=== PATIENT | female | born 1945 | race Caucasian/White ===

== ENCOUNTER 2025-10-18 09:52 | Outpatient (OUT) | payer MEDICARE, SELFPAY ==
--- OUTSIDE RECORDS SUMMARY | 2025-10-18 10:00 | XMS_ITS | Clinical Summary ---
Author Organization [facility] Address [address] [place] [address], [address] [place] [address] Care Team Providers Care Cash Teller Name Role Phone Unavailable Primary Care Provider Unavailabl e Social History Tobacco UseTypesPacks/DayYears UsedDateSmoking Tobacco: Never Assessed CommentsUnknownSex and Gender InformationValueDate RecordedSex Assigned at Not on fileLegal XzbYpschf10/17/2014 5:28 PM ESTGender IdentityNot on fileSexual OrientationNot on file Plan of Treatment Not on file
--- OUTSIDE RECORDS SUMMARY | 2025-10-18 10:01 | XMS_ITS | Clinical Summary ---
Author Organization [facility] Address [address] [place] [address] Phone Care Team Providers Care Joiners Supervisor Name Role Phone Unavailable Primary Care Provider Unavailabl e Social History Tobacco UseTypesPacks/DayYears UsedDateSmoking Tobacco: Never Assessed CommentsUnknownSex and Gender InformationValueDate RecordedSex Assigned at Not on fileLegal FtzAmhgqk78/25/2022 4:57 PM ESTGender IdentityNot on fileSexual OrientationNot on file Plan of Treatment Health MaintenanceDue DateLast DoneCommentsLipid Panel1947Yearly Adult Jytbesmr1947Hepatitis C Xvdhijlpg70/12/1965DTaP/Tdap/Td Vaccines (1 - Tdap)1969Pneumococcal Vaccine (1 of 1 - PCV)1997Zoster Vaccines (1 of 2)1997Bone Density Scan2012RSV High Risk: (Elderly (60+) or Population) (1 - 1-dose 75+ series)2022Influenza Vaccine (#1) 2025OVID-19 Vaccine ( - season)2025HIB VaccinesAged OutNo longer eligible based on patient's age to complete this topicHPV VaccinesAged OutNo longer eligible based on patient's age to complete this topicHepatitis A VaccinesAged OutNo longer eligible based on patient's age to complete this topic Hepatitis B VaccinesAged OutNo longer eligible based on patient's age to complete this topicIPV VaccinesAged OutNo longer eligible based on patient's age to complete this topicMeningococcal VaccineAged OutNo longer eligible based on patient's age to complete this topicRotavirus VaccinesAged OutNo longer eligible based on patient's age to complete this topic
--- OUTSIDE RECORDS SUMMARY | 2025-10-18 10:01 | XMS_ITS | Data Portability ---
Author Organization [facility], 9DIAMOND - [id number] Address [address] [place] [address] Care Team Providers Care Manager Exchange Name Role Phone PUNEET HERNANDEZ Primary Care Provider PUNEET HERNANDEZ Referring Provider Assessment No assessment recorded. Plan of Treatment Reminders Order DateSubmit DateProviderLast Modified ByOrganization DetailsLast Modified TimeDetailsAppointmentsNone recorded.Labpap, IGATHENAQuest [facility], [address] [place], [address], 02/18/2018 14:09:51pap, IG + [facility] ([facility] [address], [place], [address], 12/ 20:29:47pap, LB - Order Code 34 [facility] [address], [place], [address], 12/08/2014 13:34:48biopsy, tkydripwmha09/16/[facility]oralesperezW[facility] ([facility]), [address], [place], [address], 07 07:43:26biopsy, sionezhvmh91/16/2013 06/08/2013rmoralesperezGenpath [facility] ([facility]), [address], [place], [address], 10 09:41:02ReferralNone recorded.ProceduresNone recorded.SurgeriesNone recorded. ImagingMAMMO, screening, ugijsoonh29ATHENANot available 04/08/2018 17:43:62MPMT32ATHENANot innmmbpoq49/14/2019 05:01:55MAMMO, screening, digital, rbsvmuhtr38THENANot yuxxggwwm32/05/2016 05:41:11mammogram, rfpamcltc51 rmoralesperezNot uuxdunzcl37/18/2014 08:09:53dual energy x-ray absorptiometry rmoralesperezNot wwfudursn74/18/2014 08:09:53Medication Orderstemazepam 15 mg vjmaolx887912rcfycsfb1[id number], [address] [place], [place], [id number], 11/09/2015 15:55:23ketorolac 60 mg/2 mL intramuscular lvzuaust11THENANot /27/2013 04:21:37 Patient TargetsNo targets recorded. Patient Instructions Encounter Date Encounter Id Patient Instructions Last Modified By Organization Details Last Modified Time 10/27/2014 [id number] colonoscopy education rmoralesperez Not available 12/30/2014 08:59:44 Colorectal Cancer Screening: Care InstructionsrmoralesperezNot available 12/30/2014 08:59:44self breast exam educationrmoralesperezNot available 12/30/2014 08:59:[id number] self-exam: care instructions rmoralesperezNot tizmxmczc78/07/2016 11:24:56002/16/[id number] breast exam rwytymazqiyrewduo1Cal /26/2018 12:16:13colonoscopy educationjbelcher7 Not jgrwcjaiq85/26/2018 12:16:13Colorectal Cancer Screening: Care Instructions xpetjpjf3Fez uzpmpirff01/26/2018 12:16:13Well woman exam: Requests pap without HPV cotesting today. Script given for pt to schedule mammogram and DEXA scan. She follows with a PCP, is unsure if she wants to have another colonoscopy. f/u 1 year for well woman exam.nawxupxz3Gut unvijkzzz19/26/2018 12:25:16 Reason for Referral None Reported. Results Created Date Observation Date Name Description Value Unit Range Abnormal Flag Note LastModifiedBy Organization Detail LastModifiedTime 06/08/2013 06/08/2013 unknown observation status normalNot [facility] [employer] [address], [place], [address], Ph [phone] 08:27:unknownendocervical [id number].pdfnormal Not [facility] [employer] [address], [place], [address], Ph [phone] 08:27:unknownendometrial [id number].pdfnormal diagnosis 1. endocervix, curettage: abundant mucus and scant endocervical glands. no evidence of dysplasia identified. rebiopsy may BE necessary, if clinically indicated. 2. endometrium, biopsy: no evidence of atypia, nor malignancy identified. proliferative phase glands with pseudodecidualized stroma, focal breakdown and reparative epithelial changes. slide inventory: 4 H\T\E CPT: 36000 X 2 tissue source 1. endocervical curettings 2. endometrial biopsy gross description 1. the specimen IS received in formalin labeled with the patient's nameand ecc and consists of two thin wire brushes with adherent cruz-light brown fragments of mucoid material and soft tissue. these have an aggregate diameter of 0.5 cm. the specimen IS labeled with ipc blue. filtered into a tissue specimen bag. these are removed and are entirely submitted in a single cassette 1A. 2. the specimen IS received in formalin labeled with the patient's name and endometrial biopsy and consists of multiple cruz and brown fragments of tissue with a total aggregate diameter of 5.8 cm. the entire specimen IS submitted 2A through 2C. ss/gep signature shikha cid M.D, M.P.H. (case signed 06/10/2013)Not [facility] [address], [place], [address], 07 08:27:pap, LB + HR HPVobservation statusNot [facility] [address], [place], [address], 201/03/2014 13:34:48pap, LB + HR HPVPap smearNORMAL DIAGNOSIS SUXHWOIH-UXT-GBMTEYLQ-PAP SMEAR Negative For Intraepithelial Lesion or Malignancy. Atrophic Smear. (pgr) Adequacy Satisfactory Adequacy Reason Endocervical Component/Squamous Metaplastic Cells from Transformation Zone are Present. Test Result HPV Negative for High Risk HPV HPV High Risk Only: Hybrid Capture 2 is performed by nucleic acid hybridization with signal amplification using microplate chemiluminescence for detection of high/intermediate risk HPV types 16, 18, 31, 33, 35, 39, 45, 51, 52, 56, 58, 59, 68 (does not specifically identify each type present). -OR- APTIMA HPV assay on the [employer] system is an in vitro nucleicacid amplification test for the qualitative detection of E6/E7 viral messenger RNA of HPV types 16,18, 31, 33, 35, 39, 45, 51, 52, 56, 58, 59, 66, \T\ 68. The test(s) were validated and its appropriate performance characteristics determined by the reporting laboratory. This laboratory is certifiedunder CLIA-88 as qualified to perform high complexity clinical laboratory testing. Signature TITO DUNHAM(ASCP) (Case signed 11/01/2014) The PAP test is a screening test, not a diagnostic pro cedure and should not be used as the sole means of detecting cervical cancer. The pap technique in the best of hands is subject to both false negative and false positive result at low but significantrates as evidenced by published data. This result should be interpreted in the context of this data, plus your patient's history and clinical findings.[place] [address] [facility] [address], [place], [address], 101/03/2014 13:34:48pap, LB + HR HPVHPVNEGATIVENEGATIVE FOR HIGH RISK HPV HYBRID CAPTURE 2 IS PERFORMED BY NUCLEIC ACID HYBRIDIZATION WITH SIGNAL A MPLIFICATION USING MICROPLATE CHEMILUMINESCENCE FOR DETECTION OF HIGH/INTERMEDIATE RISK HPV TYPES 16, 18, 31, 33, 35, 39, 45, 51, 52, 56, 58, 59, 68 (DOES NOT SPECIFICALLY IDENTIFY EACH TYPE PRESENT). -OR- APTIMA HPV ASSAY ON THE [employer] DTS SYSTEM IS AN IN VITRO NUCLEIC ACID AMPLIFICATION TEST FOR THE QUALITATIVE DETECTION OF E6/E7 VIRAL MESSENGER RNA OF HPV TYPES 16, 18, 31, 33, 35, 39, 45, 51, 52, 56, 58, 59, 66, \T\ 68. THE TEST(S) WERE VALIDATED AND ITS APPROPRIATE PERFORMANCE CHARACTERISTICS DETERMINED BY THE REPORTING LABORATORY. THIS LABORATORY IS CERTIFIED UNDER CLIA-88 QUALIFIED TO PERFORM HIGH COMPLEXITY CLINICAL LABORATORY TESTING.[facility] [address], [place], [address], 92/08/2014 13:34:48pap, LB + HPV mRNA E6/W4sganzxoo information:none givennormalNot AvailableQuest [facility] [address], [place], [address], 411325 20:29:47 pap, LB + HPV mRNA E6/E7LMP:none givennormalNot Available [facility] [address], [place], [address], 495711/16/2015 20:29:47 pap, LB + HPV mRNA E6/E7prev. Pap:none givennormalNot AvailableQuest [facility] [address], [place], [address], [address] 20:29:47 pap, LB + HPV mRNA E6/E7prev. BX:none givennormalNot AvailableQuest Diagnostics - [facility] [address], [place], [address], 7[address] 20:29:47 pap, LB + HPV mRNA E6/T4djegin:none givennormalNot Available [facility] [address], [place], [address], [address] 20:29:47 pap, LB + HPV mRNA E6/R1loqqkhzvl of adequacy:normal SATISFACTORY FOR EVALUATIONNot AvailableQuest Diagnostics - [address], [address], 11/16/2015 20:29:47 pap, LB + HPV mRNA E6/Z2dotmgcpnoqyygq/result:Negative for intraepithelial lesion or malignancy. Atrophic pattern; predominantly parabasal cellsNot AvailableQuest Diagnostics - [address], [address], 11/16/2015 20:29:47 pap, LB + HPV mRNA E6/M4zopmsty:normalThis Pap test has been evaluated with computer assisted technology. Parabasal cells in smears that lack maturation due to atrophy or other hormonal reasons cannot be differentiated from transformation zone cells. Accordingly, presence or absence of endocervical or transformation zone components cannot be reported in this patient.Not AvailableQuest Diagnostics - [address], [address], 11/16/2015 20:29:47 pap, LB + HPV mRNA E6/J6nntflabgnpvjdimt:Nagi, CT (ASCP) CT screening location: [place] [address] Not AvailableQuest Diagnostics [address], [address], 11/16/2015 20:29:47 pap, LB + HPV mRNA E6/E7HPV MRNA E6/E7Not Detectednot detectednormalThis test was performed using the APTIMA HPV Assay ([employer] This assay detects E6/E7 viralmessenger RNA (mRNA) from 14 high-risk HPV types (16,18,31,33,35,39,45,51,52,56,58,59,66,68).Not AvailableQuest Diagnostics [address] [place], [address], 12 20:29:47 pap, IG + reflex HPV if ASC-UinterpretationNILNEGATIVE FOR INTRAEPITHELIAL LESION AND MALIGNANCY.Not Available[facility] ([facility]) [address] [place], [address], Ph [phone] 14:09:51 pap, IG + reflex HPV if ASC-Ucategory:NILNegative for Intraepithelial LesionNot Available[facility] ([facility]) [address] [facility] [place], [address], Ph [phone] 14:09:51 pap, IG + reflex HPV if ASC-Uadequacy:SDERSatisfactory for evaluation.Not Available[facility] ([facility]) [address] [place], [address], Ph [phone] 14:09:51 pap, IG + reflex HPV if ASC-Uclinician provided ICD10: JchcbdaO84.2 Z12.4Not Available[facility] ([facility]) [address] [place], [address], Ph [phone] 14:09:51 pap, IG + reflex HPV if ASC-Uperformed by:Ada Garza CytotechnologistNot AvailableLab[facility] ([facility]) [address] [place], [address], Ph [phone] 14:09:51 pap, IG + reflex HPV if ASC-Unote:CommentThe Pap smear is a screening test designed to aid in the detection of premalignant and malignant conditions of the uterine cervix. It is not a diagnostic procedure and should not be used as the sole means of detecting cervical cancer. Both false-positive and false-negative reports do occur.Not Available[facility] ([facility]) [address] [facility], [place], [address], 13 14:09:51 pap, IG + reflex HPV if ASC-Utest methodology:CommentThis liquid based ThinPrep(R) pap test was screened with the use of an image guided system.Not Available[facility] ([facility]) [address] [facility], [place], [address], 48 14:09:51 pap, IG + reflex HPV if ASC-U.CommentThe HPV DNA reflex criteria were not met with this specimen result therefore, no HPV testing was performed.Not Available[facility] ([facility]) [address] [facility], [place], [address], 04 14:09:51 imaging/diagnostic resultNo observation recorded. [address], [address], 41/02/2016 08:44:170MAMMO, screening, digital, bilateralNo observation recorded.[address], [address], 9217811/28/2015 11:03:MAMMO, screening, bilateralNo observation recorded.apndsmby52 Not Mwtogdulu03/25/2019 15:17:56 Result Notes Documentation Provider Name and Address Organization Details Recorded Time Pap, Ig + Reflex Hpv If Asc-u : Pap Smear SELVIN DOVE [address] [facility] [address], [place], [address], [facility], [facility] 02/18/2018 17:20:08 Problems Name Problem SNOMED Code Status Onset Date Resolution Date Notes Provider Name and Address Organization Details Recorded Time Menopausal symptom 95128531 Active Not BtevyjqrdSlobixWxjxwy75/29/2013 03:11:44Postmenopausal afotlgvp53670319 ActiveNot IzzrrwsirEqzfuyMtxnpg06/29/2013 03:11:44 Problem Notes None recorded. Procedures Surgical History Date Name Laterality Status Provider Name and Address Organization Details Recorded Time 11/09/2015 Date of Last Pap Smear completedSELVIN DOVE [address], [place], [place], [address] [place] [address], [facility], [facility]02/16/2018 12:25:Hysteroscopy ([facility]) Olga Stratton MD [address], [place], [address] [place] [address], [facility], 06/08/2013 14:21:Date of Last ColonoscopycompletedSELVIN DOVE [address], [address], [place], [address] [place] [address], [facility], [facility]02/16/2018 12:25:GI- Colonoscopy Olga Stratton MD [address], [place], [address] [place] [address], [facility], [facility]06/22/2013 14:14:Surgery-Othercompleted Meghann Stratton MD [address], [place], [address] [place] [address], [facility], [facility]06/22/2013 14:14:Ortho- Knee Surgery Olga Stratton MD [address], [address], [place], [address] [place] [address], [facility], [facility]06/22/2013 14:14:37111/24/1978GYN- Tubal Ligation/SterilizationcomTelma Stratton MD [address], [address], [place], [address] [place] [address], [facility], [facility]06/22/2013 14:14:37007/25/1975GYN- Cryotherapy of the CervixcomTelma Stratton MD [address] [facility], [address], [place], [address], [facility], [facility]06/22/2013 14:14:37 Imaging Results None recorded. Procedure Notes None recorded. Medical Equipment None Reported. Allergies No known drug allergies Medications Name Sig Start Date Stop Date Status Note LastModified by Organization Details LastModified Time amoxicillin 500 mg capsule TAKE FOUR CAP SULES BY MOUTH 1 HOUR PRIOR TO APPOINTMENT activeNot AvailableNot AvailableNot Availablemethocarbamol 500 mg tabletactive Not AvailableNot AvailableNot Availablehydrocodone 5 mg-acetaminophen 325 mg tabletactiveNot AvailableNot AvailableNot AvailablePrometrium 100 mg capsule activeNot AvailableNot AvailableNot Availablemetronidazole 500 mg tabletactive Not AvailableNot AvailableNot Availableciprofloxacin 500 mg tabletactiveNot AvailableNot AvailableNot Availableoxycodone-acetaminophen 5 mg-325 mg tablet activeNot AvailableNot AvailableNot Availableclarithromycin ER 500 mg tablet,extended release 24 hractiveNot AvailableNot AvailableNot Available temazepam 15 mg capsuleTake 1 capsule every day by oral route for 60 days. 11/09/2015ctiveNot AvailableNot AvailableNot Availablemisoprostol 200 mcg tabletactiveNot AvailableNot AvailableNot Availablelevofloxacin 500 mg tablet activeNot AvailableNot AvailableNot Availableketorolac 60 mg/2 mL intramuscular solutionInject 1 mL every 6 hours by intramuscular route.06/08/2013ctiveNot AvailableNot AvailableNot Availableondansetron 4 mg disintegrating tabletactive Not AvailableNot AvailableNot AvailableCenestin 0.3 mg tabletTAKE 1 TABLET BY MOUTH EVERY DAYactiveNot AvailableNot AvailableNot Availableestradiol- norethindrone acet 0.5 mg-0.1 mg tabletTake 1 tablet every day by oral route for 90 days.completedNot AvailableNot AvailableNot Available Vitals Date Recorded Body weight Body mass index (BMI) Body height Systolic And Diastolic Provider Name and Address Organization Details Last Updated DateTime 02/16/2018 74060.3 g 28.5 kg/m2 165.1 cm 124/70 mm[Hg] Alisha Boss-Per ez (TERMED) [facility], [facility] 02/16/2018 11:28:02 Date Recorded Body weight Body height Body mass index (BMI) Systolic And Diastolic Provider Name and Address Organization Details Last Updated DateTime 06/22/2013 90749.741 05 g 165.1 cm 27.5 kg/m2 100/61 mm[Hg] Alisha parikh (TERMED) [facility] 06/22/2013 11:28:14 Date Recorded Body height Body mass index (BMI) Body weight Systolic And Diastolic Provider Name and Address Organization Details Last Updated DateTime 10/27/2014 165.1 cm 28.3 kg/m2 91665.702 9 g 130/65 mm[Hg] Althea Grant (TERMED) [facility] 10/27/2014 13:38:43 Date Recorded Body weight Body height Body mass index (BMI) Systolic And Diastolic Provider Name and Address Organization Details Last Updated DateTime 11/09/2015 90010.664 75 g 165.1 cm 29.1 kg/m2 120/80 mm[Hg] Althea Grant (TERMED) [facility] 11/09/2015 15:09:05 Social History Question Answer Notes LastModified by Organization D etails LastModified Time Tobacco Smoking Status Former Smoker Meghann Stratton MD [address] [facility], [address], [place], [address], [facility]06/22/2013 14:14:37Is Blood Transfusion Acceptable In An Emergency?Ofkgdlqacuw2Phsnazondzn not djpabhvhs26/30/2013What Is Your Level Of Caffeine Consumption?Moderate1 Cup A DayrmoralesperezInformation not knixnwgrq92/18/2013What Type Of Diet Are You Following?REGULARrmoralesperez Information not dkcpeqtqy87/18/8425Pnmsedmpt50odwadbse3Sqmejclvjsh not available 06/22/2013Marital NpitpwSfqeogscjjonnlgb7Ofcenwaxsen not afwhrflbv92/30/2013What Was The Date Of Your Most Recent Tobacco Screening?02/16/2018DBA_PATCH_[id number] Information not kjeixusba69/25/2019How Much Tobacco Do You Smoke?Normoralesperez Information not qvysbsrei21/18/2013How Many Years Have You Smoked Tobacco?10 rlrbtrvs1Mvzipnenfzg not sbljfbytp38/30/2013 Sex: Unknown Functional Status Question Answer Note LastModified by Organizat ion Details LastModified Time What is your level of alcohol consumption? Occasional reports rarely jbelcher7 Information not available 02/16/2018 What is your occupation? retired cqdjchqb1Qzvigtjphcp not /30/2013What is your exercise level? Lupckyzaxqvnlabdzn3Kbwenbjmhqj not oaxorbdib17/30/2013 Mental Status None recorded. Family History Relationship Description Onset Age of this Age Resolved Age Notes LastModified by Organization Details LastModified Time Sister Diabetes mellitus pobgsrlp1Xqn cmqdivwfr55/17/2015 15:53:20SisterDisorder of thyroid gland previously recorded as Thyroid Wpexiuwcdojspok3Try /17/2015 15:53:20 MotherMalignant neoplasm of uteruspreviously recorded as Cancer-Uterineddelgado2 Not kbruhgcck60/17/2015 15:53:20MotherHeart qrauoxohoqcatdm5Uym available 11/09/2015 15:53:20MotherCerebrovascular accidentpreviously recorded as Stroke lxduupws6Cud hriquktqd53/17/2015 15:53:20 Medical History Condition Response Hematology-Blood Clotting Disorder/Facto r V Leiden N Neurology- Stroke/TIA N Endocrinology- Osteoporosis N Psych- Depression N Hematology-Other Y Hematology-Anemia N Dermatology-Eczema/Psoriasis N Cancer- Ovary N Cardiology- High Cholesterol N Cardiology- Heart Arrhythmia N Hematology-DVT/Pulmonary Embolism N Neurology- Seizures/Epilepsy N Cancer- Breast N Ortho-Fractures N GI- Liver Disease/Hepatitis N Pulmonary-Other N Cancer- Colon N Cancer- Vulvar N Psych- Anxiety Disorder N GI- Reflux/Ulcers N GI-Other N Rheumatology-Arthritis Y Neurology- Headaches/Migraines N Endocrinology- Diabetes N Cancer- Cervical N Cancer- Skin N Pulmonary- COPD/Emphysema Y Cardiology- Heart Disease N GI- Irritable Bowel Syndrome N GI- Crohn's/Ulcerative Colitis N Cardiology- High Blood Pressure N Cancer- Lung N Cancer- Endometrial/Uterine N Eyes- Vision Loss/Macular Degeneration N ENT-Other N Hematology-Blood Transfusion N Pulmonary- Asthma N Urology- Interstitial Cystitis N Urology- Stones Y Cancer-Other N GI- Gallbladder Disease Y Gynecological History Statement/Question Response n/a5//HPV TestNegative5//189125Rbp at Eophgjegk78EMici Menopausal Hormone UsePast UseSexual vxzthjjpzedSuxjgltrusoo30J73Uqozdrhe activeNDate of Last Jptfdesiwzr87/01/2010Current Control Method:NoneHistory of Sexually Transmitted InfectionYMenopauseNDate of last bone densityDate of Last Pap Smear 11/09/2015NNone Obstetrics History GPAL:G 3 P 3 0 0 3 Type Value Multiple Births 0 Full Term 3 Induced 0 Spontaneous 0 Premature 0 Living 3 Ectopics 0 Total 3 Past Encounters Encounter ID Performer Location Encounter Start Date Encounter Closed Date Diagnosis/Indication Diagnosis SNOMED-CT Code Diagnosis ICD10 Code Diagnosis IMO Codes Diagnosis Note [id number] Meghann Stratton MD [id number] [place] [address] [address] 02/26/2011 08:52:09 02/26/2011 10:08:13 [id number] [address] [place] [address] [address] 03/26/2012 08:47: 09:44:[id number] [address] [address] [address] 02/08/2013 09:49: 10:56:[id number] [address] [address] 04/13/2013 08:44:0005 09:37:[id number] [address] [address] [address] 05/26/2013 09:35:52005/26/2013 11:02:[id number] [address] [address] [address] 06/08/2013 12:41:05006/08/2013 15:33:[id number] [address] [address] [address] 06/22/2013 10:43:26006/22/2013 12:59:[id number] Delgado, [id number] [place] [address] [address] 10/27/2014 13:03:5710/27/2014 15:34:57Screening for malignant neoplasm of cervix [id number] [place], [address] [address] [place] [facility] [address] 11/09/2015 14:38:5911/09/2015 16:00:38Specialized medical itfoliszoax53793214 Z01.419 [id number] Stratton [id number] [facility] [address] [facility] [address] 02/16/2018 10:28:1803 08:45:35Screening for malignant neoplasm of cervix 202935006O49.4 Health Concerns Section Related Observation LastModified by Organization Detai ls LastModified Time None Recorded Concern Status LastModified by Organization Details LastModified Time None Recorded Advance Directives Directive None Recorded Payers Insurance Date Sequence Insurance Name Policy Number Policy Valladares Covered Member ID Valladares Member ID Guarantor Name 11/29/2019 1 [place] Susanna [id number] [id number] Susanna [id number] [facility] - PLAN F (MEDICARE SUPPLEMENT)[id number] [facility] ([place])[id number] [id number] [facility] Notes Date Note Type Note Provider Name and Address Orga nization Details Recorded Time 06/22/2013 text/html HPI POST OP-HYSTEROSCOPY Meghann Stratton MD [address] [facility], [address], [place], [address], [facility]06/22/2013 14:18:0312text/html HPI kyra Stratton MD [address] [facility], [address], [place], [address], [facility], [facility]03/28/2015 15:17:4612text/html HPI KYRA Stratton MD [address] [facility], [address], [place], [address], [facility], [facility]11/09/2015 15:55:3603text/html 72 yo, female, presents for well woman exam. Last mammogram: 11/21/2015, BIRADS 2 Last pap: 11/09/2015 pap neg/hpv neg Colonoscopy: 2009, reports normal, believe recommendation to return was 7-8 years. Not sure if she wants to have another done. DEXA: unsure when last one was, would like order for a new one. Reports it was normal. Broke part of wrist and hand in November, two rods placed, in cast today. Denies sexual activity, reports with ED Menopause: started at 29 yo. Hx: waldenstrom's syndrome. Reports she has blood work every 3 months. Has not had chemo in two years.SELVIN DOVE [address], [address], [place], [address], [facility], [facility]02/16/2018 12:31:17 OBGyn Episode No OBEpisode recorded.
--- NOTE | 2025-10-18 10:02 | ECG_ITS ---
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
--- NOTE | 2025-10-18 10:47 | PM.PRESUREVA ---
History of Present Illness History of Present Illness Chief complaint: LEFT URETERAL STONE Narrative: Patient presents for presurgical testing. Please see HPI from Dr. Landeros dated October 17, 2025. Review of Systems ROS Narrative Please see ROS from Dr. Landeros dated October 17, 2025. [facility] Medical History (Updated 10/18/25 @ 10:34 by Jenna Robison NP) Unsteady gait ?R26.81 - Unsteadiness on feet (ICD-10) IBS (irritable bowel syndrome) ?K58.9 - Irritable bowel syndrome, unspecified (ICD-10) Elevated blood-pressure reading without diagnosis of hypertension ?R03.0 - Elevated blood-pressure reading, without diagnosis of hypertension (ICD-10) Menopause ?Z78.0 - Asymptomatic menopausal state (ICD-10) Pneumonia ?J18.9 - Pneumonia, unspecified organism (ICD-10) Gallstones ?K80.20 - Calculus of gallbladder without cholecystitis without obstruction (ICD-10) Diverticulosis ?K57.90 - Diverticulosis of intestine, part unspecified, without perforation or abscess without bleeding (ICD-10) Diverticulitis ?K57.92 - Diverticulitis of intestine, part unspecified, without perforation or abscess without bleeding (ICD-10) Cataracts, bilateral ?H26.9 - Unspecified cataract (ICD-10) Arthritis ?M19.90 - Unspecified osteoarthritis, unspecified site (ICD-10) Waldenstrom macroglobulinemia ?C88.00 - Waldenstrom macroglobulinemia not having achieved remission (ICD-10) Ureteral stricture ?N13.5 - Crossing vessel and stricture of ureter without hydronephrosis (ICD-10) Hernia ?K46.9 - Unspecified abdominal hernia without obstruction or gangrene (ICD-10) Short-term memory loss ?R41.3 - Other amnesia (ICD-10) Sciatica ?M54.30 - Sciatica, unspecified side (ICD-10) 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 - Other symptoms and signs involving cognitive functions and awareness (ICD-10) Osteoporosis ?M81.0 - Age-related osteoporosis without current pathological fracture (ICD-10) 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 - Drug-induced polyneuropathy (ICD-10) ?T45.1X5A - Adverse effect of antineoplastic and immunosuppressive drugs, initial encounter (ICD-10) Depression ?F32.A - Depression, unspecified (ICD-10) Kidney stones ?N20.0 - Calculus of kidney (ICD-10) Diarrhea ?R19.7 - Diarrhea, unspecified (ICD-10) Cystocele Insomnia ?G47.00 - Insomnia, unspecified (ICD-10) Central vein occlusion of retina ?H34.8192 - Central retinal vein occlusion, unspecified eye, stable (ICD-10) Actinic keratosis ?L57.0 - Actinic keratosis (ICD-10) Hydronephrosis, left ?N13.30 - Unspecified hydronephrosis (ICD-10) Left ureteral stone ?N20.1 - Calculus of ureter (ICD-10) Surgical History (Updated 10/18/25 @ 10:31 by Jenna Robison NP) History of tubal ligation ?Z98.51 - Tubal ligation status (ICD-10) H/O wrist surgery ?Z98.890 - Other specified postprocedural states (ICD-10) H/O knee surgery ?Z98.890 - Other specified postprocedural states (ICD-10) Hx of tonsillectomy ?Z90.89 - Acquired absence of other organs (ICD-10) H/O colonoscopy ?Z98.890 - Other specified postprocedural states (ICD-10) S/P colon polypectomy ?Z98.890 - Other specified postprocedural states (ICD-10) ?Z86.0100 - Personal history of colon polyps, unspecified (ICD-10) History of cholecystectomy ?Z90.49 - Acquired absence of other specified parts of digestive tract (ICD-10) History of bone marrow biopsy ?Z98.890 - Other specified postprocedural states (ICD-10) History of cataract extraction with lens replacement H/O cystoscopy ?Z98.890 - Other specified postprocedural states (ICD-10) History of hernia repair ?Z98.890 - Other specified postprocedural states (ICD-10) ?Z87.19 - Personal history of other diseases of the digestive system (ICD-10) S/P cystoscopy with ureteral stent placement ?Z96.0 - Presence of urogenital implants (ICD-10) Family History (Updated 10/18/25 @ 10:31 by Jenna Robison NP) Other Family history of cancer Family history of heart disease Family history of stroke Social History (Updated 10/18/25 @ 10:26 by Jenna Robison NP) Within the past year, how often did you have a drink containing alcohol: never Score interpretation: A score less than 3 is consistent with normal alcohol consumption. Smoking status: Former smoker Non-prescribed substance use: denies use Highest level of school completed/degree received: high school graduate Meds Home Medications and Allergies Home Medications ?Medication ?Instructions ?Recorded ?Confirmed ?Type cephalexin 500 mg capsule 500 mg PO Q12H 10/18/25 10/18/25 History loperamide 2 mg capsule 2 mg PO Q6H PRN loose stool 10/18/25 10/18/25 History (Anti-Diarrheal (loperamide)) melatonin 5 mg capsule 5 mg PO QPM 10/18/25 10/18/25 History tamsulosin 0.4 mg capsule 0.4 mg PO Q24H 10/18/25 10/18/25 History Allergies Allergy/AdvReac Type Severity Reaction Status Date / Time bortezomib (From Velcade) Allergy Unknown Verified 10/18/25 10:21 gabapentin Allergy Unknown Verified 10/18/25 10:21 pregabalin (From Lyrica) Allergy Unknown Verified 10/18/25 10:21 Exam Narrative Exam Narrative: Constitutional: Awake, alert, comfortable, well-appearing, nontoxic, interactive, vital signs as charted Head: Normocephalic, atraumatic Neck: Supple, normal appearance, normal range of motion, no meningeal signs, no lymphadenopathy Respiratory: No respiratory distress, breath sounds clear Cardiovascular: Regular rate and rhythm, strong and regular heart tones Abdomen: Nontender, normal bowel sounds, soft, no CVA tenderness Musculoskeletal: Slow but steady gait, 1+ edema bilateral ankles Skin: No rashes or induration, no lesions, only visible skin inspected Neuro: No neurological deficits, normal sensation Psychiatric: Oriented ?3, poor insight, poor concentration Assessment and Plan Assessment and Plan (1) Left ureteral stone: (2) Hydronephrosis, left: (3) Kidney stones: Plan Cystoscopy, left ureteroscopy, laser lithotripsy, stone extraction, left stent removal versus replacement scheduled with Dr. Landeros October 26, 2025.
[2025-10-18 11:36] LABS: INR 0.96; Partial Thromboplastin Time 26.0 sec (22.3-36.2); Prothrombin Time 10.2 sec (9.0-11.6)
== END 2025-10-18 09:53 | disposition home or self-care (01) ==
PROVIDERS: PCP Family Medicine; Visit Provider Urology
DX: Z01.810 Encounter for preprocedural cardiovascular examination (principal); Z01.812 Encounter for preprocedural laboratory examination; Z01.818 Encounter for other preprocedural examination; N20.1 Calculus of ureter; N13.30 Unspecified hydronephrosis; N20.0 Calculus of kidney
CPT/HCPCS: 36415; 85610; 85730; 93005; G0463

== ENCOUNTER 2025-10-26 11:44 | Day surgery (SDC) | payer MEDICARE, SELFPAY ==
[2025-10-18 10:42] VITALS: BP 156/85; PULSE 90; TEMP 36.6; O2SAT 98; BMI 25.8
--- OUTSIDE RECORDS SUMMARY | 2025-10-26 11:48 | XMS_ITS | Clinical Summary ---
Author Organization [facility] Address [address] [place] [address] Phone Care Team Providers Care Air Analyst Name Role Phone Unavailable Primary Care Provider Unavailabl e Social History Tobacco UseTypesPacks/DayYears UsedDateSmoking Tobacco: Never Assessed CommentsUnknownSex and Gender InformationValueDate RecordedSex Assigned at Not on fileLegal LhlYzydvr28/25/2022 4:57 PM ESTGender IdentityNot on fileSexual OrientationNot on file Plan of Treatment Health MaintenanceDue DateLast DoneCommentsLipid Panel1947Yearly Adult Vpxwuufh1945Hepatitis C Vfvfeejhy32/12[birth year]1965DTaP/Tdap/Td Vaccines (1 - Tdap)1969Pneumococcal Vaccine (1 of [...]
--- OUTSIDE RECORDS SUMMARY | 2025-10-26 11:48 | XMS_ITS ---
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 Peripheral vision looks ok Plan: - Follow serum viscosity - Pheresis today - Prednisone 40 mg QD - PPI for GI prophylaxis - BM Bx tomorrow Central loss of entfzm5612/13/2013 Overview (12/13/2013): Original presenting symptom Peripheral huang mostly intact Describes subjective greying of central field on left eye Plan As per Hyperviscosity Current Treatment and Therapy Plans No current plan information found. Past Treatment and Therapy Plans Plan NameStart DateDiscontinue DateTreatment MedicationsDiscontinue ReasonPlan ProviderCyclesRITUXIMAB 375 MG ONCE* riTUXimab iv piggyback (RITUXAN) Dc Araiza P1 of 1 cycle startedRITUXIMAB 375 MG ONCE * riTUXimab iv piggyback (RITUXAN) Dc Araiza P1 of 1 cycle startedBORTEZOMIB 1.3 D1,8,15,22 - Q28D * bortezomib (VELCADE) 2.5 mg/mL SQ syringe Dc Araiza P2 of 16 cycles startedBORTEZOMIB 1.3 D1,8,15,22 - Q28D * bortezomib (VELCADE) 2.5 mg/mL SQ syringe Dc Araiza PTreatment not startedBORTEZOMIB 1.3 CYCLOPHOSPHAMIDE 300 PO D1,8,15 - Q28D4/* bortezomib (VELCADE) 2.5 mg/mL SQ syringe * cycloPHOSphamide (CYTOXAN) Dc Araiza PTreatment not startedRITUXIMAB 375 D1 - Q60D X2 YEARS * riTUXimab iv piggyback (RITUXAN) Dc Araiza P1 of 12 cycles started
--- OUTSIDE RECORDS SUMMARY | 2025-10-26 11:48 | XMS_ITS | Data Portability ---
Author Organization [facility] [employer], [employer] - [id number] Address [address] [place] [address] Care Team Providers Care Repair Specialist Name Role Phone PUNEET HERNANDEZ Primary Care Provider PUNEET HERNANDEZ Referring Provider Assessment No assessment recorded. Plan of Treatment Reminders Order DateSubmit DateProviderLast Modified ByOrganization DetailsLast Modified TimeDetailsAppointmentsNone recorded.Labpap, IGATHENAQuest [facility] [place], [address] [place], [address], 02/18/2018 14:09:51pap, IG + HR HPVTHERiverView [facility] ([facility]), [address], [place], [address], 12/ 20:29:47pap, LB - [facility] Code 34 [facility] [address], [place], [address], 12/08/2014 13:34:48biopsy, ekxxumdpjfe08/16/rmoralesperezQuincy Valley [facility] ([facility]), [address], [place], [address], 07 07:43:26biopsy, vtdcvjdogy47/16/2013 06/08/2013rmoralesperezGenpath [facility] ([facility]), [address], [place], [address], 10 09:41:02ReferralNone recorded.ProceduresNone recorded.SurgeriesNone recorded. ImagingMAMMO, screening, glgoefadv39ATHENANot available 04/08/2018 17:43:10SFJB01ATHENANot efljkhopy58/14/2019 05:01:55MAMMO, screening, digital, erebeulol90THENANot hogemjbgg41/05/2016 05:41:11mammogram, rytiknsoq83 rmoralesperezNot tyftdkkfc76/18/2014 08:09:53dual energy x-ray absorptiometry rmoralesperezNot frbtjofrk25/18/2014 08:09:53Medication Orderstemazepam 15 mg utvzhls257416qsznmqmr6Igepnfz[id number], [address] [place], [place], [id number], 11/09/2015 15:55:23ketorolac 60 mg/2 mL intramuscular yatrzkep39THENANot cngudjmmm52/27/2013 04:21:37 Patient TargetsNo targets recorded. Patient Instructions Encounter Date Encounter Id Patient Instructions Last Modified By Organization Details Last Modified Time 10/27/2014 [id number] colonoscopy education rmoralesperez Not available 12/30/2014 08:59:44 Colorectal Cancer Screening: Care InstructionsrmoralesperezNot available 12/30/2014 08:59:44self breast exam educationrmoralesperezNot available 12/30/2014 08:59:[id number] self-exam: care instructions rmoralesperezNot qmiuztynp21/07/2016 11:24:56002/16/[id number] breast exam ymnekueuvysiruusi9Nem jnfvoxfpe65/26/2018 12:16:13colonoscopy educationjbelcher7 Not /26/2018 12:16:13Colorectal Cancer Screening: Care Instructions opemfhhz1Nbf mdgebchkc35/26/2018 12:16:13Well woman exam: Requests pap without HPV cotesting today. Script given for pt to schedule mammogram and DEXA scan. She follows with a PCP, is unsure if she wants to have another colonoscopy. f/u 1 year for well woman exam.nowebisu8Yxv idfskdxsk85/26/2018 12:25:16 Reason for Referral None Reported. Results Created Date Observation Date Name Description Value Unit Range Abnormal Flag Note LastModifiedBy Organization Detail LastModifiedTime 06/08/2013 06/08/2013 unknown observation status normalNot [facility] [address], [place], [address], Ph [phone] 08:27:unknownendocervical [id number].pdfnormal Not [facility] [address], [place], [address], Ph [phone] 08:27:unknownendometrial [id number].pdfnormal diagnosis 1. endocervix, curettage: abundant mucus and scant endocervical glands. no evidence of dysplasia identified. rebiopsy may BE necessary, if clinically indicated. 2. endometrium, biopsy: no evidence of atypia, nor malignancy identified. proliferative phase glands with pseudodecidualized stroma, focal breakdown and reparative epithelial changes. slide inventory: 4 H\T\E CPT: 33924 X 2 tissue source 1. endocervical curettings [...] shikha cid M.D, M.P.H. (case signed 06/10/2013)Not [facility] [address], [place], [address], 07 08:27:pap, LB + HR HPVobservation statusNot [facility] [address], [place], [address], 701/03/2014 13:34:48pap, LB + HR HPVPap smearNORMAL DIAGNOSIS KCLJMXLP-LMS-YTECKSPV-PAP SMEAR Negative For Intraepithelial Lesion or Malignancy. [...] present). -OR- APTIMA HPV assay on the [employer] system is an in vitro nucleicacid amplification [...] data, plus your patient's history and clinical findings.[place] [id number] [facility] [address], [place], [address], 101/03/2014 13:34:48pap, LB + HR HPVHPVNEGATIVENEGATIVE FOR HIGH RISK HPV HYBRID CAPTURE 2 IS PERFORMED BY NUCLEIC ACID HYBRIDIZATION WITH SIGNAL A MPLIFICATION USING MICROPLATE CHEMILUMINESCENCE FOR DETECTION OF HIGH/INTERMEDIATE RISK HPV TYPES 16, 18, 31, 33, 35, 39, 45, 51, 52, 56, 58, 59, 68 (DOES NOT SPECIFICALLY IDENTIFY EACH TYPE PRESENT). -OR- APTIMA HPV ASSAY ON THE [employer] DTS SYSTEM IS AN IN VITRO NUCLEIC [...] QUALIFIED TO PERFORM HIGH COMPLEXITY CLINICAL LABORATORY TESTING.[facility] [address], [place], [address], 22/08/2014 13:34:48pap, LB + HPV mRNA E6/M6hmsmvcgr information:none givennormalNot AvailableQuest Diagnostics [facility] [address], [place], [address], [id number] 20:29:47 pap, LB + HPV mRNA E6/E7LMP:none givennormalNot Available [facility] [address], [place], [address], [address]/16/2015 20:29:47 pap, LB + HPV mRNA E6/E7prev. Pap:none givennormalNot AvailableQuest Diagnostics [facility] [address], [place], [address], 6337 20:29:47 pap, LB + HPV mRNA E6/E7prev. BX:none givennormalNot AvailableQuest Diagnostics - [facility] [address], [place], [address], 3734 20:29:47 pap, LB + HPV mRNA E6/H2rjrfor:none givennormalNot Available [facility] [address], [place], [address], [id number] 20:29:47 pap, LB + HPV mRNA E6/J6ntwuhpjnd of adequacy:normal SATISFACTORY FOR EVALUATIONNot AvailableQuest Diagnostics - [address], [address], 11/16/2015 20:29:47 pap, LB + HPV mRNA E6/A9ccfpetykkmfkjh/result:Negative for intraepithelial lesion or malignancy. Atrophic pattern; predominantly parabasal cellsNot AvailableQuest Diagnostics - [address], [address], 11/16/2015 20:29:47 pap, LB + HPV mRNA E6/L8cuqymqh:normalThis Pap test has been evaluated with computer assisted technology. Parabasal cells in smears that lack maturation due to atrophy or other hormonal reasons cannot be differentiated from transformation zone cells. Accordingly, presence or absence of endocervical or transformation zone components cannot be reported in this patient.Not AvailableQuest Diagnostics - [address], [address], 11/16/2015 20:29:47 pap, LB + HPV mRNA E6/N9impckygptyiqvdjm:Nagi, CT (ASCP) CT screening location: [place] [address] Not AvailableQuest Diagnostics [address], [address], 11/16/2015 20:29:47 pap, LB + HPV mRNA E6/E7HPV MRNA E6/E7Not Detectednot detectednormalThis test was performed using the APTIMA HPV Assay ([employer] This assay detects E6/E7 viralmessenger RNA (mRNA) from 14 high-risk HPV types (16,18,31,33,35,39,45,51,52,56,58,59,66,68).Not AvailableQuest Diagnostics [address] [place], [address], 12 20:29:47 pap, IG + reflex HPV if ASC-UinterpretationNILNEGATIVE FOR INTRAEPITHELIAL LESION AND MALIGNANCY.Not AvailableLab[facility] ([facility]) [address] [place], [address], Ph [phone] 14:09:51 pap, IG + reflex HPV if ASC-Ucategory:NILNegative for Intraepithelial LesionNot AvailableLabcorp ([facility]) [address] [facility] [place], [address], Ph [phone] 14:09:51 pap, IG + reflex HPV if ASC-Uadequacy:SDERSatisfactory for evaluation.Not AvailableLab[facility] ([facility]) [address] [place], [address], Ph [phone] 14:09:51 pap, IG + reflex HPV if ASC-Uclinician provided ICD10: LkcshagE83.2 Z12.4Not Available[facility] ([facility]) [address] [place], [address], Ph [phone] 14:09:51 pap, IG + reflex HPV if ASC-Uperformed by:Ada Garza CytotechnologistNot AvailableLabcorp ([facility]) [address] [place], [address], Ph [phone] 14:09:51 pap, IG + reflex HPV if ASC-Unote:CommentThe Pap smear is a screening test designed to aid in the detection of premalignant and malignant conditions of the uterine cervix. It is not a diagnostic procedure and should not be used as the sole means of detecting cervical cancer. Both false-positive and false-negative reports do occur.Not AvailableLab[facility] ([facility]) [address] [facility], [place], [address], 11 14:09:51 pap, IG + reflex HPV if ASC-Utest methodology:CommentThis liquid based ThinPrep(R) pap test was screened with the use of an image guided system.Not AvailableLab[facility] ([facility]) [address] [facility], [place], [address], 30 14:09:51 pap, IG + reflex HPV if ASC-U.CommentThe HPV DNA reflex criteria were not met with this specimen result therefore, no HPV testing was performed.Not AvailableLab[facility] ([facility]) [address] [facility], [place], [address], 41 14:09:51 imaging/diagnostic resultNo observation recorded. [address], [address], 81/02/2016 08:44:170MAMMO, screening, digital, bilateralNo observation recorded.[address], [address], [address]11/28/2015 11:03:MAMMO, screening, bilateralNo observation recorded.xbgvwvop94 Not Bgvachmcn97/25/2019 15:17:56 Result Notes Documentation Provider Name and Address Organization Details Recorded Time Pap, Ig + Reflex Hpv If Asc-u : Pap Smear SELVIN DOVE [address] [facility], [address], [place], [address], [facility] [place] [facility], [facility] 02/18/2018 17:20:08 Problems Name Problem SNOMED Code Status Onset Date Resolution Date Notes Provider Name and Address Organization Details Recorded Time Menopausal symptom 00498779 Active Not CwxbpzbphCzdgpcBiwkoq11/29/2013 03:11:44Postmenopausal mgqqzaga14377056 ActiveNot RzuccrnprYalojlLmncjr41/29/2013 03:11:44 Problem Notes None recorded. Procedures Surgical History Date Name Laterality Status Provider Name and Address Organization Details Recorded Time 11/09/2015 Date of Last Pap Smear completedSELVIN DOVE [address], [place], [place], [address] [place] [address], [facility], [facility]02/16/2018 12:25:Hysteroscopy ([facility]) Olga Stratton MD [address], [place], [place], [address] [place] [address], [facility], 06/08/2013 14:21:Date of Last ColonoscopycompletedSELVIN DOVE [address], [address], [place], [address] [place] [address], [facility], [facility]02/16/2018 12:25:GI- Colonoscopy Olga Stratton MD [address], [place], [address] [place] [address], [facility], [facility]06/22/2013 14:14:Surgery-Othercompleted Meghann Stratton MD [address], [place], [address] [place] [address], [facility], [facility]06/22/2013 14:14:Ortho- Knee Surgery Olga Stratton MD [address], [address], [place], [address] [place] [address], [facility], [facility]06/22/2013 14:14:37111/24/1978GYN- Tubal Ligation/SterilizationcomTelma Stratton MD [address], [place], [address] [place] [address], [facility], [facility]06/22/2013 14:14:37007/25/1975GYN- Cryotherapy of the CervixcomTelma Stratton MD [address] [facility], [address], [place], [address], [facility], [facility]06/22/2013 14:14:37 Imaging Results None recorded. Procedure Notes [...] Address Organization Details Last Updated DateTime 02/16/2018 41752.3 g 28.5 kg/m2 165.1 cm 124/70 mm[Hg] Alisha Boss-Per ez (TERMED) [facility], [facility] 02/16/2018 11:28:02 Date Recorded Body weight Body height Body mass index (BMI) Systolic And Diastolic Provider Name and Address Organization Details Last Updated DateTime 06/22/2013 91150.741 05 g 165.1 cm 27.5 kg/m2 100/61 mm[Hg] Alisha parikh (TERMED) [facility] 06/22/2013 11:28:14 Date Recorded Body height Body mass index (BMI) Body weight Systolic And Diastolic Provider Name and Address Organization Details Last Updated DateTime 10/27/2014 165.1 cm 28.3 kg/m2 35937.702 9 g 130/65 mm[Hg] Althea Grant (TERMED) [facility] 10/27/2014 13:38:43 Date Recorded Body weight Body height Body mass index (BMI) Systolic And Diastolic Provider Name and Address Organization Details Last Updated DateTime 11/09/2015 05970.664 75 g 165.1 cm 29.1 kg/m2 120/80 mm[Hg] Althea Grant (TERMED) [facility] 11/09/2015 15:09:05 Social History Question Answer Notes LastModified by Organization D etails LastModified Time Tobacco Smoking Status Former Smoker Meghann Stratton MD [address] [facility], [address], [place], [address], [facility]06/22/2013 14:14:37Is Blood Transfusion Acceptable In An Emergency?Bcgbrsdwvfu8Kppnlppyebk not /30/2013What Is Your Level Of Caffeine Consumption?Moderate1 Cup A DayrmoralesperezInformation not /18/2013What Type Of Diet Are You Following?REGULARrmoralesperez Information not bjccynfjr37/18/4016Dgseycqls21jukueymk0Vlzadbgetfm not available 06/22/2013Marital YiblybGamkwfgjntmtkamx4Wljejkznaxc not lmftamrma62/30/2013What Was The Date Of Your Most Recent Tobacco Screening?02/16/2018DBA_PATCH_20190617 Information not utxkixwoz38/25/2019How Much Tobacco Do You Smoke?Normoralesperez Information not rzenhtxoc07/18/2013How Many Years Have You Smoked Tobacco?10 kwopkpnq9Dnrxrmbrhil not carslmeci71/30/2013 Sex: Unknown Functional Status Question Answer Note LastModified by Organizat ion Details LastModified Time What is your level of alcohol consumption? Occasional reports rarely jbelcher7 Information not available 02/16/2018 What is your occupation? retired ipmvbjim5Sdzicuwykje not abzzyiteg27/30/2013What is your exercise level? Xawzwtmgutpgewzbeq3Msakbefnabw not dwkgkfpca61/30/2013 Mental Status None recorded. Family History Relationship Description Onset Age of this Age Resolved Age Notes LastModified by Organization Details LastModified Time Sister Diabetes mellitus bcwudkvp6Frv jxjqilsxy44/17/2015 15:53:20SisterDisorder of thyroid gland previously recorded as Thyroid Tvqaohxomjzawdb6Vcr fdqfuxoyw49/17/2015 15:53:20 MotherMalignant neoplasm of uteruspreviously recorded as Cancer-Uterineddelgado2 Not xydvfvxmb78/17/2015 15:53:20MotherHeart lkuxhjioroxpwvf8Svl available 11/09/2015 15:53:20MotherCerebrovascular accidentpreviously recorded as Stroke rronkzjo5Ixs chmloafgv42/17/2015 15:53:20 Medical History Condition Response Hematology-Blood Clotting Disorder/Facto r V Leiden N Cancer- Colon N Pulmonary-Other N Neurology- Stroke/TIA N Cancer- Vulvar N Psych- Anxiety Disorder N GI- Reflux/Ulcers N GI-Other N Rheumatology-Arthritis Y Neurology- Headaches/Migraines N Endocrinology- Diabetes N Cancer- Cervical N Cancer- Skin N Pulmonary- COPD/Emphysema Y Endocrinology- Osteoporosis N Psych- Depression N GI- Irritable Bowel Syndrome N Cardiology- Heart Disease N Hematology-Other Y Hematology-Anemia N Dermatology-Eczema/Psoriasis N GI- Crohn's/Ulcerative Colitis N Cardiology- High Blood Pressure N Cardiology- High Cholesterol N Cancer- Ovary N Cancer- Lung N Cardiology- Heart Arrhythmia N Cancer- Endometrial/Uterine N Eyes- Vision Loss/Macular Degeneration N ENT-Other N Hematology-DVT/Pulmonary Embolism N Hematology-Blood Transfusion N Neurology- Seizures/Epilepsy N Pulmonary- Asthma N Urology- Interstitial Cystitis N Cancer- Breast N Ortho-Fractures N Urology- Stones Y GI- Liver Disease/Hepatitis N Cancer-Other N GI- Gallbladder Disease Y Gynecological History Statement/Question Response n/a5//HPV TestNegative5//320307Cuc at Ngnzenzpr67HHqvv Menopausal Hormone UsePast UseSexual nytkpraqmxvLeyofuqjmlet06J71Yfvchffh activeNDate of Last Nivnmisrhwp61/01/2010Current Control Method:NoneHistory of Sexually Transmitted InfectionYMenopauseNDate of [...] ICD10 Code Diagnosis IMO Codes Diagnosis Note [id number] Meghann Stratton MD [id number] [place] [address],[place] [address] 02/26/2011 08:52:09 02/26/2011 10:08:13 [id number] [address] [address],[place] [address] 03/26/2012 08:47: 09:44:[id number] [address] [address],[place] [address] 02/08/2013 09:49: 10:56:[id number] [address] [address],[place] [address] 04/13/2013 08:44:0005 09:37:[id number] [address] [address],[place] [address] 05/26/2013 09:35:52005/26/2013 11:02:[id number] [address],[place] [address] 06/08/2013 12:41:05006/08/2013 15:33:[id number] [address] [address],[place] [address] 06/22/2013 10:43:26006/22/2013 12:59:[id number] Delgado, [address] [address] 10/27/2014 13:03:5710/27/2014 15:34:57Screening for malignant neoplasm of cervix [id number] Delgado, [address] [facility],[place] [address] 11/09/2015 14:38:5911/09/2015 16:00:38Specialized medical zasomquptnq43525976 Z01.419 [id number] Stratton WKWJ067_NGAPGPJG [facility] [address] [facility],[place] [address] 02/16/2018 10:28:1803 08:45:35Screening for malignant neoplasm of cervix 861365031T55.4 Health Concerns Section Related Observation LastModified by Organization Detai ls LastModified Time None Recorded Concern Status LastModified by Organization Details LastModified Time None Recorded Advance Directives Directive None Recorded Payers Insurance Date Sequence Insurance Name Policy Number Policy Valladares Covered Member ID Valladares Member ID Guarantor Name 11/29/2019 1 [place] Susanna [id number] [id number] Susanna [id number] [facility] MED[place] - PLAN F (MEDICARE SUPPLEMENT)[id number] [facility] ([facility])[id number] [facility] Notes Date Note Type Note Provider Name and Address Orga nization Details Recorded Time 06/22/2013 text/html HPI POST OP-HYSTEROSCOPY Meghann Stratton MD [address] [facility], [address], [place], [address], [facility]06/22/2013 14:18:0312text/html HPI kyra Stratton MD [address] [facility], [address], [place], [address], [facility], [facility]03/28/2015 15:17:4612text/html HPI KYRA Stratton MD [address] [facility], [address], [place], [address], [facility], [facility]11/09/2015 15:55:3603text/html 72 yo, female, presents for well [...] chemo in two years.SELVIN DOVE [address] [facility], [address], [place], [address], [facility], [facility]02/16/2018 12:31:17 OBGyn Episode No OBEpisode recorded.
--- OUTSIDE RECORDS SUMMARY | 2025-10-26 11:48 | XMS_ITS | Clinical Summary ---
Author Organization [facility] Address [address] [place] [address] Care Team Providers Care Hot Room Attendant Name Role Phone Fernando Rogers Primary Care Provider [phone] Raymundo Barnhart MD Unavailable [phone] Allergies No known active allergies Medications MedicationSigDispense QuantityRefillsLast FilledStart DateEnd DateStatus diphenoxylate-atropine 2.5-0.025 mg per tablet Take 1 tablet by mouth four times daily as needed. 30 tablet ctive LEXAPRO 10 mg tablet Take 10 mg by mouth once daily.5Active melatonin 10 mg tab Take 10 mg by mouth as directed. Takes 2Active ibuprofen (ADVIL) 200 mg tablet Take 200 mg by mouth as needed.Active Aspirin 81 mg tab Take 81 mg by mouth once daily.Active calcium carbonate (CALTRATE 600 ORAL) Take 1,200 mg by mouth once daily.Active iv contrast (will be provided with radiology test) CT Chest ABD/PEL-Inject, intravenously, once for 1 dose.No IV access, insert saline lock prior to the beginning of sedation, infusion, injection of imaging exam. Discontinue saline lock post exam. IfPt. has a central line or IVAD, may access for administration according to line specific nursing protocol. Once exam is complete flush line and de-access according to line specific nursing protocol in the CT contrast administration guidelines link. 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 Peripheral vision looks ok Plan: - Follow serum viscosity - Pheresis today - Prednisone 40 mg QD - PPI for GI prophylaxis - BM Bx tomorrow Central loss of usslsh6412/13/2013 Overview (12/13/2013): Original presenting symptom Peripheral huang mostly intact Describes subjective greying of central field on left eye Plan As per Hyperviscosity Encounters DateTypeDepartmentCare GafkKzmkgpbmpwn99/20/2025 10:40 AM EDTVisit (SP) Office Hematology/Oncology [address] [place] [address] [place] [address] Raymundo Barnhart MD Waldenstrom macroglobulinemia (HCC) (Primary Dx)09/12/20253491Kcgrku03/15/2025 Telephone Cancer Appts [address] [place] [address] Raymundo Barnhart MD 08/08/2025Telephone Hematology/Oncology [address] [place] [address] [place] [address] Sabi Webster RN Results - Ctfrom Last 3 Months Immunizations ImmunizationAdministration DatesNext Duepneumococcal polysaccharide (PPV23) vaccine, 23 valent (PNEUMOVAX 23)12/11/2013 Family History Medical HistoryRelationCommentsBlindnessMotherCancerMotherHypertensionMother DiabetesSisterRelationStatusCommentsMotherSister Social History Tobacco UseTypesPacks/DayYears UsedDateSmoking Tobacco: FormerCigarettesQuit: 12/14/1999Passive Smoke Exposure: PastSmokeless Tobacco: Never Tobacco Cessation:Counseling Given: Not Answered Alcohol UseStandard Drinks/WeekCommentsNot Currently1 (1 standard drink = 0.6 oz pure alcohol)Area Deprivation IndexAnswerDate RecordedNational Score (1-100), lower number is lower rzsf392206/16/2025State Score (1-10), lower number is lower xdwd654Data from: https://www.neighborhoodatlas.[facility]/. Last address used for k[address]06/16/2025CommentsNoSex and Gender InformationValueDate RecordedSex Assigned at BirthNot on fileLegal Sex Dvdkyt8912/10/2013 8:25 PM ESTGender IdentityNot on fileSexual OrientationNot on file Last Filed Vital Signs Vital SignReadingTime TakenCommentsBlood Yhxwytzz404/8209/12/2025 10:42 AM EDT Echcj442409/12/2025 10:42 AM JTNMgahlsaevbj53.4 ??C (97.6 ??F)09/12/2025 10:42 AM EDTRespiratory Ebnv3827 10:42 AM EDTOxygen Fdyatjgenp43%09/12/2025 10:42 AM EDTInhaled Oxygen Concentration--Furphs40.9 kg (143 lb 1.3 oz)09/12/2025 10:42 AM IZQPxobvc254.6 cm (5' 4 )06/13/2014 10:35 AM EDTBody Mass Index-- Plan of Treatment DateTypeDepartmentCare Team (Latest Contact Info)Whnhvugcfdi83/20/2026 2:15 PM ESTAppointment Radiology Pet CT [address] [place] [address] CT Chest without xkyeeusc37/20/2026 11:15 AM EDTOffice Visit [facility] [address] [place] [address] 6 month follow up with lab03/13/2026 11:30 AM EDTVisit (SP) Office Hematology/Oncology [address] [place] [address] Lydia Duncan APRN.PHOTOSTAT OPERATOR [address] [place] [address] 6 [facility] DateLast DoneCommentsAnxiety Xbtpwkcnd64/12/1965Depression Syrglyrpm04/12/1965Hepatitis C Rmonrtyud16/12/1965 Medicare Annual Wellness Visit04/24/2012one Density Gdynliocd88/12/2012RSV Vaccine (1 - 1-dose 75+ series)2022dvance Directive Qjwagfgudh48/01/2025 Covid-19 Vaccine ( season), 12/05/2022, 04/30/2022, Additional history existsInfluenza Vaccine (#1), 08/25/2023, 09/04/2022, Additional history existsDiabetes Yjyvysqcv58/20/2028 09/12/2025, 06/16/2025, 06/13/2014, Additional history existsDTaP,Tdap,Td Vaccine (2 - Td or Tdap)neumococcal Vaccine: 50+Completed 08/25/2018, 08/25/2015, 12/11/2013Cologuard (FIT-DNA)Vnuydmopdvyf05/24/2022 Colorectal Cancer ScreeningDiscontinuedShingrix KjrortmZzsbqyjaf76/16/2023, 11/24/2009CT ColonographyDiscontinuedColonoscopyDiscontinuedFecal Occult Blood DiscontinuedSigmoidoscopyDiscontinued Procedures Procedure NamePriorityDate/TimeAssociated DiagnosisCommentsPROTEIN ELECTROPHORESIS SERUM (P)Eodqtos3609/12/2025 11:17 AM EDT Waldenstrom macroglobulinemia (HCC) PROTEIN, TOTAL (FOR SEPG)Ojxqhpw8309/12/2025 11:17 AM EDT Waldenstrom macroglobulinemia (HCC) PKVYrbiqkr49/20/2025 11:17 AM EDT Waldenstrom macroglobulinemia (HCC) KAPPA/LOU,FREE,ZUGPsrfieb93/20/2025 11:17 AM EDT Waldenstrom macroglobulinemia (HCC) PROTEIN ELECTROPHORESIS SERUM W/HUXFZALdcsvin90/20/2025 11:17 AM EDT Waldenstrom macroglobulinemia (HCC) LD LACTATE LBOEUWGXazzmzm39/20/2025 11:17 AM EDT Waldenstrom macroglobulinemia (HCC) COMPREHENSIVE METABOLIC OGLATRlbxhcc77/20/2025 11:17 AM EDT Waldenstrom macroglobulinemia (HCC) CBC + TGYOHtwqkzt10/20/2025 11:17 AM EDT Waldenstrom macroglobulinemia (HCC) from Last 3 Months Results * PROTEIN, TOTAL (FOR SEPG) (09/12/2025 11:17 AM EDT)ComponentValueRef RangeTest MethodAnalysis TimePerformed AtPathologist SignatureProtein, Total6.36.3 - 8.0 g/dL09/12/2025 5:25 PM EDTCKETTERING HEALTH [facility]ING[facility] MAIN LABSpecimen (Source)Anatomical Location / LateralityCollection Method / VolumeCollection TimeReceived Time BloodBLOOD SPECIMEN / UnknownVenipuncture / Wlabinn0209/12/2025 11:17 AM EDT 09/12/2025 11:17 AM EDT Narrative Authorizing ProviderResult TypeResult StatusAdarsh Vennepureddy MDLABORATORY Final ResultPerforming OrganizationAddressCity/State/ZIP CodePhone Number [facility] [address] * (ABNORMAL) PROTEIN ELECTROPHORESIS SERUM (P) (09/12/2025 11:17 AM EDT) ComponentValueRef RangeTest MethodAnalysis TimePerformed AtPathologist SignatureAlbumin for SPE4.243.43 - 5.41 g/dL09/14/2025 3:50 PM EDTCKETTERING HEALTH [facility]ING[facility] MAIN LABAlpha 1 Globulin0.280.18 - 0.43 g/dL09/14/2025 3:50 PM EDT [facility] MAIN LABAlpha 2 Globulin0.570.42 - 0.98 g/dL09/14/2025 3:50 PM EDTCKETTERING [facility] MAIN LABBeta Globulin0.630.61 - 1.17 g/dL09/14/2025 3:50 PM [facility] LABGamma Globulin0.570.53 - 1.51 g/dL 09/14/2025 3:50 PM [facility] MA[facility] LABInterpretation (Prot Electro)An M protein is identified on protein electrophoresis.(A)No definitive M protein is identified on protein electrophoresis.09/14/2025 3:50 PM [facility] MAIN LABInterpretation Comment for Protein ElectrophoresisRecommend monoclonal protein analysis to further characterize the M protein.09/14/2025 3:50 PM [facility] MAIN LABM-Protein LocationGamma Fraction 1 09/14/2025 3:50 PM [facility] LABM-Protein Concentration0.23(H) <=0.00 g/dL09/14/2025 3:50 PM [facility] MAIN LABSPE Staff Review Reviewed by Gabi Jaramillo M.D., Ph.D1 3:50 PM [facility] MAIN LABSpecimen (Source)Anatomical Location / LateralityCollection Method / VolumeCollection TimeReceived TimeBloodBLOOD SPECIMEN / Unknown Venipuncture / Ieediwi3009/12/2025 11:17 AM EDT1 11:17 AM EDT Narrative [facility] - 09/14/2025 3:50 PM EDT Serum electrophoresis test was performed using the [employer] V8 NEXUS capillary electrophoresis method. Results obtained with different assay methods or kits cannot be used interchangeably. Authorizing ProviderResult TypeResult StatusAdarsh Vennepureddy MDLABORATORY Final ResultPerforming OrganizationAddressCity/State/ZIP CodePhone Number [facility] [address] [place] [address], * (ABNORMAL) KAPPA/LOU,FREE,SER (09/12/2025 11:17 AM EDT)ComponentValueRef RangeTest MethodAnalysis TimePerformed AtPathologist SignatureKappa Free, Serum60.0(H)3.3 - 19.4 mg/L1 2:33 PM EDCLEVEL[facility] Comment: Rarely, increased serum free light chains levels may not be detected or accurately quantified due to prozone phenomenon or in high viscosity samples using this immunoturbidimetric assay. Correlation with other laboratory results and clinical findings is recommended. The [place] Free Light Chain was performed using the Binding Site Optilite immunoturbidimetric method. Result obtained with different assay methods or kits cannot be used interchangeably. Lambda Free, Serum8.45.7 - 26.3 mg/L1 2:33 PM EDTCGLENBEIGH HOSPITAL LABComment: Rarely, increased serum free light chains levels may not be detected or accurately quantified due to prozone phenomenon or in high viscosity samples using this immunoturbidimetric assay. Correlation with other laboratory results and clinical findings is recommended. The Lambda Free Light Chain was performed using the Binding Site Optilite immunoturbidimetric method. Result obtained with different assay methods or kits cannot be used interchangeably. ?? K/L Ratio, Serum7.14(H)0.26 - 1.6509/13/2025 2:[address] [facility] LABSpecimen (Source)Anatomical Location / LateralityCollection Method / Volume Collection TimeReceived TimeBloodBLOOD SPECIMEN / UnknownVenipuncture / Unknown 09/12/2025 11:17 AM EDT1 11:17 AM EDT Narrative Authorizing ProviderResult TypeResult StatusAdarsh Vennepureddy MDLABORATORY Final ResultPerforming OrganizationAddressCity/State/ZIP CodePhone Number [facility] [address] [place] [address], * LACTATE DEHYDROGENASE (09/12/2025 11:17 AM EDT)ComponentValueRef RangeTest MethodAnalysis TimePerformed AtPathologist PvvbaysbbBR605912 - 214 U/L 09/12/2025 12:24 PM EDTNORTHCOAST SELECT SPECIALTY [facility] LABComment: Hemolysis present. The origin of the hemolysis, in vitro versus an in vivo hemolytic process, cannot be distinguished via this assay alone. In vitro hemolysis may lead to non-physiological (spurious)elevation in lactate dehydrogenase (LDH) results. The result should be interpreted in context of the clinical setting and other test results. Suggest reorder as clinically indicated. Specimen (Source)Anatomical Location / LateralityCollection Method / Volume Collection TimeReceived TimeBloodBLOOD SPECIMEN / UnknownVenipuncture / Unknown 09/12/2025 11:17 AM EDT1 11:17 AM EDT Narrative Authorizing ProviderResult TypeResult StatusAdashoaib Barnhart MDLABORATORY Final ResultPerforming OrganizationAddressCity/State/ZIP CodePhone Number [facility] [address] [place] [address] * (ABNORMAL) IMMUNOGLOBULIN M (09/12/2025 11:17 AM EDT)ComponentValueRef Range Test MethodAnalysis TimePerformed AtPathologist QxjeskwmqNaN037(H)40 - 230 mg/dL09/13/2025 10:34 AM EDTCKETTERING [facility]ALTH [facility] MAIN LABSpecimen (Source) Anatomical Location / LateralityCollection Method / VolumeCollection Time Received TimeBloodBLOOD SPECIMEN / UnknownVenipuncture / Jlecydy6009/12/2025 11:17 AM EDT1 11:17 AM EDT Narrative Authorizing ProviderResult TypeResult StatusAdashoaib Barnhart MDLABORATORY Final ResultPerforming OrganizationAddressCity/State/ZIP CodePhone Number [facility] [address] [place] [address], * (ABNORMAL) COMPREHENSIVE METABOLIC PANEL (09/12/2025 11:17 AM EDT)Component ValueRef RangeTest MethodAnalysis TimePerformed AtPathologist Signature Protein, Total6.46.3 - 8.0 g/dL09/12/2025 12:23 PM EDTNORTHCOAST [facility] LABAlbumin4.33.9 - 4.9 g/dL09/12/2025 12:23 PM EDTNORTHCOAST [facility] LABCalcium, Total10.3(H)8.5 - 10.2 mg/dL09/12/2025 12:23 PM EDTNORTHCST [facility] LABBilirubin, Total0.80.2 - 1.3 mg/dL09/12/2025 12:23 PM EDTNORTSSM [facility]ENTER[facility] LABAlkaline Tyykwlntaci3257 - 123 U/L1 12:23 PM EDTNORTHCST [facility] SPWJRI1183 - 35 U/L1 12:23 PM EDW[facility] VAVVCM840 - 38 U/L1 12:23 PM [facility] KEHFdlalio558(H)74 - 99 mg/dL09/12/2025 12:23 PM [facility] LABComment: The [place] Diabetes Association (ADA) provides guidance for cutoff values for fasting glucose andrandom glucose. The ADA defines fasting as no caloric intake for at least 8 hours. Fasting plasma glucose results between 100 to 125 mg/dL indicate increased risk for diabetes (prediabetes). Fasting plasma glucose results greater than or equal to 126 mg/dL meet the criteria for diagnosis of diabetes. In the absence of unequivocal hyperglycemia, results should be confirmed by repeat testing. In a patient with classic symptoms of hyperglycemia or hyperglycemic crisis, random plasma glucose results greater than or equal to 200 mg/dL meet the criteria for diagnosis of diabetes. Reference: Standards of Medical Care in Diabetes 2016, [place] Diabetes Association. Diabetes Care. 2016.39(Suppl 1). BUN23(H)7 - 21 mg/dL09/12/2025 12:23 PM [facility] LAB Creatinine0.810.58 - 0.96 mg/dL09/12/2025 12:23 PM [facility] UXPMsezdn256(H)136 - 144 mmol/L1 12:23 PM [facility] LABPotassium4.33.7 - 5.1 mmol/L1 12:23 PM EDW[facility] JPOFhhpjoom60663 - 107 mmol/L1 12:23 PM EDT [facility] JTTSD65786 - 30 mmol/L1 12:23 PM EDT [facility] LABAnion Gap16(H)8 - 15 mmol/L1 12:23 PM [facility] LABEstimated Glomerular Filtration Rate 74>=60 mL/min/1.73m 09/12/2025 12:23 PM EDTJON [facility] LABComment:Estimated Glomerular Filtration Rate (eGFR) is calculated using the 2020 CKD-EPI creatinine equation. This equation utilizes serum creatinine, sex, and age as parameters. The creatinine assay has traceable calibration to isotope dilution- mass spectrometry. Refer to KDIGO guidelines for clinical interpretation. In patients with unstable renal function, e.g. those with acute kidney injury, the eGFRmay not accurately reflect actual GFR.Specimen (Source)Anatomical Location / LateralityCollection Method / VolumeCollection TimeReceived TimeBloodBLOOD SPECIMEN / UnknownVenipuncture / Zpvstzl5409/12/2025 11:17 AM EDT1 11:17 AM EDT Narrative Authorizing ProviderResult TypeResult StatusAdarsh Vennepureddy MDLABORATORY Final ResultPerforming OrganizationAddressCity/State/ZIP CodePhone Number [facility] [address] [place] [address] * (ABNORMAL) COMPLETE BLOOD COUNT AND DIFFERENTIAL (09/12/2025 11:17 AM EDT) ComponentValueRef RangeTest MethodAnalysis TimePerformed AtPathologist SignatureWBC3.703.70 - 11.00 k/uL09/12/2025 11:33 AM EDTJON [facility] LABRBC5.44(H)3.90 - 5.20 m/uL09/12/2025 11:33 AM EDW[facility] SGKXliieqqcra40.9(H)11.5 - 15.5 g/dL09/12/2025 11:33 AM EDTNORTMYM[facility] HGMRmyjgvibnb02.4(H)36.0 - 46.0 % 09/12/2025 11:33 AM [facility] VOLTVY26.080.0 - 100.0 fL09/12/2025 11:33 AM EDW[facility] UEALVV15.2 26.0 - 34.0 pg09/12/2025 11:33 AM EDTNORTMYMICHIG[facility] LABMCHC 32.930.5 - 36.0 g/dL09/12/2025 11:33 AM EDTNORTMYMICHIGAN [facility] LABRDW-CV13.211.5 - 15.0 %09/12/2025 11:33 AM EDTNOVETERANS [facility] LABPlatelet Tucfk432502 - 400 k/uL09/12/2025 11:33 AM EDW[facility] LABMPV8.8(L)9.0 - 12.7 fL09/12/2025 11:33 AM EDT [facility] LABNeutrophils %55.7%09/12/2025 11:33 AM EDT [facility] LABAbs Neut2.061.45 - 7.50 k/uL09/12/2025 11:33 AM EDW[facility] LABLymphocytes %34.3%09/12/2025 11:33 AM EDW[facility] LABAbs Lymph1.271.00 - 4.00 k/uL 09/12/2025 11:33 AM EDW[facility] LABMonocytes %8.1% 09/12/2025 11:33 AM EDW[facility] LABAbs Mono0.30<0.87 k/uL09/12/2025 11:33 AM EDW[facility] LABEosinophils % 0.8%09/12/2025 11:33 AM EDTNORTMYMICH[facility] LABAbs Eosin0.03 <0.46 k/uL09/12/2025 11:33 AM EDTNORTMYM[facility] LAB Basophils %0.8%09/12/2025 11:33 AM EDTNORTMYMICH[facility] LABAbs Baso0.03<0.11 k/uL09/12/2025 11:33 AM EDW[facility] LAB Immature Granulocytes %0.3%09/12/2025 11:33 AM EDW[facility] LABAbs Immature Gran<0.03<0.10 k/uL09/12/2025 11:33 AM EDW[facility] LABNRBC0.0/100 WBC09/12/2025 11:33 AM EDW[facility] LABAbsolute nRBC<0.01<0.01 k/uL09/12/2025 11:33 AM EDT [facility] LABDiff PvvnUegc06/20/2025 11:33 AM EDT [facility] LABSpecimen (Source)Anatomical Location / LateralityCollection Method / VolumeCollection TimeReceived TimeBloodBLOOD SPECIMEN / UnknownVenipuncture / Gfbpklr6509/12/2025 11:17 AM EDT1 11:17 AM EDT Narrative Authorizing ProviderResult TypeResult StatusAdars Vennepureddy MDLABORATORY Final ResultPerforming OrganizationAddressCity/State/ZIP CodePhone Number [facility] [address] [place] [address] from Last 3 Months Insurance * Guarantor: Susanna Minaya AAclisaunt TypeRelation to PatientDate of BirthPhone Billing AddressSelf ClgNyec4205/[birth year][address] [place] [address] Care Teams Team MemberRelationshipSpecialtyStart DateEnd Date Fernando Rogers [address] [place] [address] PCP - GeneralFamily Medicine12/20/13 Raymundo Barnhart MD [address] [place] [address] [place] [address] Hematology/Rjlxenxg99/20/25
--- OUTSIDE RECORDS SUMMARY | 2025-10-26 11:48 | XMS_ITS | Clinical Summary ---
Author Organization [facility] Address [address] [place] [address] Care Team Providers Care Party Demonstrator Name Role Phone Manjinder Mak MD Primary Care Provider [phone] Allergies Active AllergyReactionsCriticalityNoted KjbeLvyqbamaKdpomgepsr89/29/2023 Other Reaction(s): Neuropathy Dust Mite Nyilzhz6010/22/2023 Other Reaction(s): Itchy, watery, and red eye EzzkoxsgxpKyzzsp47/29/2023 Other Reaction(s): Sick Pollen Jittatt9610/22/2023 Other Reaction(s): Itchy eyes AcygwvxconSbphdlmGvlo87/29/2023 Medications MedicationSigDispense QuantityRefillsLast FilledStart DateEnd DateStatus Acetaminophen 500 MG capsule Take 1 tablet by mouth if needed.Active Active Problems ProblemNoted DateDiagnosed DateDry eyes10/29/2023ystoid macular edema of left eye10/29/2023Epiretinal membrane (ERM) of left eye10/29/2023Left posterior capsular raduazoelmvvc96/06/2023 Resolved Problems ProblemNoted DateDiagnosed DateResolved DateVentral hernia, lettfetajk30/13/2023 10/06/2023hronic vqiyocti75ngercute adjustment disorder with depressed moodWaldenstrom's macroglobulinemia in Social History Tobacco UseTypesPacks/DayYears UsedDateSmoking Tobacco: LurwsyWwtfnzinsf523 11/24/1965 - 11/24/1999Smokeless Tobacco: Never Tobacco Cessation:Counseling Given: Yes Comments:QUIT COLD TURKEY Alcohol UseStandard Drinks/WeekCommentsNot Currently0 (1 standard drink = 0.6 oz pure alcohol)1 GLASS NEW YEAR'S EVECommentsUnknownSex and Gender InformationValueDate RecordedSex Assigned at BirthNot on fileLegal SexFemale 02/05/2023 9:44 PM EDTGender IdentityNot on fileSexual OrientationNot on file Last Filed Vital Signs Vital SignReadingTime TakenCommentsBlood Holjdpeo875/7508 9:51 AM EDT Dzwos8223 9:51 AM EDTTemperature--Respiratory Rate--Oxygen Saturation-- Inhaled Oxygen Concentration--Zsbzkv31.1 kg (170 lb)06/24/2025 9:51 AM EDTHeight 160 cm (5' 3 )06/24/2025 9:51 AM EDTBody Mass Index30.1108 9:51 AM EDT Plan of Treatment DateTypeDepartmentCare Team (Latest Contact Info)Eznsiatccra93/08/2025 2:00 PM ESTOffice Visit [facility] [address] [place] [address] Camden Parikh DO [address] [place] [address] Health MaintenanceDue DateLast DoneCommentsCOVID-19 Vaccine ( season) , 12/05/2022, 04/30/2022, Additional history existsInfluenza Vaccine (#1)51, 08/25/2023, 09/04/2022, Additional history sweiohLicdgjdlwnkDdqmqydyhjhu69/01/2010Pneumococcal Vaccine: 65+ YearsCompleted 08/25/2018, 08/25/2015, 12/11/2013Colorectal Cancer ScreeningDiscontinuedFIT-DNA Cngtlxwnavsr77/24/2022CT ColonographyDiscontinuedFITDiscontinuedFOBTDiscontinued SigmoidoscopyDiscontinued Insurance Care Teams Team MemberRelationshipSpecialtyStart DateEnd Manjinder Mak MD [address] [place] [address] PCP - GeneralFamily Upajxgsr40/13/23
[2025-10-26 12:15] VITALS: BP 162/79; PULSE 100; TEMP 36.5; O2SAT 96; BMI 24.5
--- NOTE | 2025-10-26 12:52 | PC.NURSE ---
red open areas to top of right shoulder blade. Patient states that it itches at time. Patient states that she has had it a few weeks.
--- NOTE | 2025-10-26 13:09 | PC.NURSE ---
Dr. Landeros spoke with patients son about the rash to her back. Patients son states that she mentioned the rash a week ago. After speaking with the son, Dr. Landeros decided that it is best to reschedule the procedure. Patient's son and patient verbalized an understanding.
== END 2025-10-26 13:14 | disposition home or self-care (01) ==
LOC: SURGOUT 11:45
PROVIDERS: PCP Family Medicine; Visit Provider Urology
DX: N13.2 Hydronephrosis with renal and ureteral calculous obstruction (principal); Z53.8 Procedure and treatment not carried out for other reasons
CPT/HCPCS: 52353; 36415

== ENCOUNTER 2025-11-09 11:05 | Outpatient (OUT) | payer MEDICARE, SELFPAY ==
--- OUTSIDE RECORDS SUMMARY | 2025-11-09 11:15 | XMS_ITS | Clinical Summary ---
Author Organization [facility] Address [address] [place] [address] Phone Care Team Providers Care Casino Gaming Inspector Name Role Phone Unavailable Primary Care Provider Unavailabl e Social History Tobacco UseTypesPacks/DayYears UsedDateSmoking Tobacco: Never Assessed CommentsUnknownSex and Gender InformationValueDate RecordedSex Assigned at Not on fileLegal PfuOslrxt47/25/2022 4:57 PM ESTGender IdentityNot on fileSexual OrientationNot on file Plan of Treatment Health MaintenanceDue DateLast DoneCommentsLipid Panel1947Yearly Adult Cbvsfhbk1947Hepatitis C Nfbtvtcou53/12/1965DTaP/Tdap/Td Vaccines (1 - Tdap)1969Pneumococcal Vaccine (1 of [...]
--- OUTSIDE RECORDS SUMMARY | 2025-11-09 11:15 | XMS_ITS | Clinical Summary ---
Author Organization [facility] Address [address] [place] [address] Care Team Providers Care Agricultural Purchasing Agent Name Role Phone Manjinder Mak MD Primary Care Provider [phone] Allergies Active AllergyReactionsCriticalityNoted StezVutdnvacNvaykwayof55/29/2023 Other Reaction(s): Neuropathy Dust Mite Arrkgms0410/22/2023 Other Reaction(s): Itchy, watery, and red eye WorimfwhacYyciwl46/29/2023 Other Reaction(s): Sick Pollen Uivfvkj5510/22/2023 Other Reaction(s): Itchy eyes YsxmsmpaldZlmpcnhFsih93/29/2023 Medications MedicationSigDispense QuantityRefillsLast FilledStart DateEnd DateStatus Acetaminophen 500 MG capsule Take 1 tablet by mouth if needed.Active Active Problems ProblemNoted DateDiagnosed DateDry eyes10/29/2023ystoid macular edema of left eye10/29/2023Epiretinal membrane (ERM) of left eye10/29/2023Left posterior capsular yjypjvfjzzajo90/06/2023 Resolved Problems ProblemNoted DateDiagnosed DateResolved DateVentral hernia, svllewrvqz47/13/2023 10/06/2023hronic dzilbluz06ngercute adjustment disorder with depressed moodWaldenstrom's macroglobulinemia in xevvgyeoe81 Social History Tobacco UseTypesPacks/DayYears UsedDateSmoking Tobacco: JiyburIqemwfkiru675 11/24/1965 - 11/24/1999Smokeless Tobacco: Never Tobacco Cessation:Counseling Given: Yes Comments:QUIT COLD TURKEY Alcohol UseStandard Drinks/WeekCommentsNot Currently0 (1 standard drink = 0.6 oz pure alcohol)1 GLASS NEW YEAR'S EVECommentsUnknownSex and Gender InformationValueDate RecordedSex Assigned at BirthNot on fileLegal SexFemale 02/05/2023 9:44 PM EDTGender IdentityNot on fileSexual OrientationNot on file Last Filed Vital Signs Vital SignReadingTime TakenCommentsBlood Mifmbqcx802/7508 9:51 AM EDT Msawy9483 9:51 AM EDTTemperature--Respiratory Rate--Oxygen Saturation-- Inhaled Oxygen Concentration--Whbyob42.1 kg (170 lb)06/24/2025 9:51 AM EDTHeight 160 cm (5' 3 )06/24/2025 9:51 AM EDTBody Mass Index30.1108 9:51 AM EDT Plan of Treatment DateTypeDepartmentCare Team (Latest Contact Info)Grslzqbxtsa39/21/2026 1:45 PM ESTOffice Visit [facility] [address] [place] [address] Camden Parikh DO [address] [place] [address] Health MaintenanceDue DateLast DoneCommentsCOVID-19 Vaccine ( season) 51, 09/23/2024, 10/09/2023, Additional history existsInfluenza Vaccine (#1)51, 08/25/2023, 09/04/2022, Additional history dippzbIfekjleijraCcgbrqnzemhj30/01/2010Pneumococcal Vaccine: 65+ YearsCompleted 08/25/2018, 08/25/2015, 12/11/2013Colorectal Cancer ScreeningDiscontinuedFIT-DNA Iprxdqxmrhno27/24/2022CT ColonographyDiscontinuedFITDiscontinuedFOBTDiscontinued SigmoidoscopyDiscontinued Insurance Care Teams Team MemberRelationshipSpecialtyStart DateEnd Manjinder Mak MD [address] [place] [address] PCP - GeneralFamily Hdktulad86/13/23
--- OUTSIDE RECORDS SUMMARY | 2025-11-09 11:15 | XMS_ITS | Clinical Summary ---
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 Peripheral vision looks ok Plan: - Follow serum viscosity - Pheresis today - Prednisone 40 mg QD - PPI for GI prophylaxis - BM Bx tomorrow Central loss of lccwko7012/13/2013 Overview (12/13/2013): Original presenting symptom Peripheral huang mostly intact Describes subjective greying of central field on left eye Plan As per Hyperviscosity Encounters DateTypeDepartmentCare YqziEjwlshgdike32/20/2025 10:40 AM EDTVisit (SP) Office Hematology/Oncology [address] [place] [address] [place] [address] Raymundo Barnhart MD Waldenstrom macroglobulinemia (HCC) (Primary Dx)09/12/2025Travelfrom Last 3 Months Immunizations ImmunizationAdministration DatesNext Duepneumococcal polysaccharide (PPV23) vaccine, 23 valent (PNEUMOVAX 23)12/11/2013 Family History Medical HistoryRelationCommentsBlindnessMotherCancerMotherHypertensionMother DiabetesSisterRelationStatusCommentsMotherSister Social History Tobacco UseTypesPacks/DayYears UsedDateSmoking Tobacco: UbjgdzUiutrfwyud1Byja: 12/14/1999Passive Smoke Exposure: PastSmokeless Tobacco: Never Tobacco Cessation:Counseling Given: Not Answered Alcohol UseStandard Drinks/WeekCommentsNot Currently1 (1 standard drink = 0.6 oz pure alcohol)Area Deprivation IndexAnswerDate RecordedNational Score (1-100), lower number is lower imxv552406/16/2025State Score (1-10), lower number is lower iuot303Data from: https://www.neighborhoodatlas.medicine.[facility].edu/. Last address used for npjdaiuuhts[address]06/16/2025CommentsNoSex and Gender InformationValueDate RecordedSex Assigned at BirthNot on fileLegal Sex Dmkaob8912/10/2013 8:25 PM ESTGender IdentityNot on fileSexual OrientationNot on file Last Filed Vital Signs Vital SignReadingTime TakenCommentsBlood Fjdsvwpx046/8209/12/2025 10:42 AM EDT Nmrkk172809/12/2025 10:42 AM ELERcenjlukimo92.4 ??C (97.6 ??F)09/12/2025 10:42 AM EDTRespiratory Tsfs1013 10:42 AM EDTOxygen Ukmdprgzae67%09/12/2025 10:42 AM EDTInhaled Oxygen Concentration--Uuyeyp49.9 kg (143 lb 1.3 oz)09/12/2025 10:42 AM REBTibrhm824.6 cm (5' 4 )06/13/2014 10:35 AM EDTBody Mass Index-- Plan of Treatment DateTypeDepartmentCare Team (Latest Contact Info)Qyxfkamwhxa53/20/2026 2:15 PM ESTAppointment Radiology [address] CT [address] [place] [address] CT Chest without pskztvpo91/20/2026 11:15 AM EDTOffice Visit [facility] [address] [place] [address] [place] [address] 6 month follow up with lab03/13/2026 11:30 AM EDTVisit (SP) Office Hematology/Oncology [address] [place] [address] Lydia Duncan, JACQUELIN.AURICULOTHERAPIST [address] [place] [address] 6 month follow up with labHealth MaintenanceDue DateLast DoneCommentsAnxiety Fefdhfnwi42/12/1965Depression Bvoonfuco95/12/1965Hepatitis C Xhqmfpgzu74/12/1965 Medicare Annual Wellness Visit04/24/2012one Density Rxxthljcs94/12/2012RSV Vaccine (1 - 1-dose 75+ series)2022dvance Directive Nldcgptilg82/01/2025 Covid-19 Vaccine (2024- season), 12/05/2022, 04/30/2022, Additional history existsInfluenza Vaccine (#1), 08/25/2023, 09/04/2022, Additional history existsDiabetes Jxadhnbyc73/20/2028 09/12/2025, 06/16/2025, 06/13/2014, Additional history existsDTaP,Tdap,Td Vaccine (2 - Td or Tdap)neumococcal Vaccine: 50+Completed 08/25/2018, 08/25/2015, 12/11/2013Cologuard (FIT-DNA)Suwhkabbsbqt43/24/2022 Colorectal Cancer ScreeningDiscontinuedShingrix PdwzulfMyxcaiaec86/16/2023, 11/24/2009CT ColonographyDiscontinuedColonoscopyDiscontinuedFecal Occult Blood DiscontinuedSigmoidoscopyDiscontinued Procedures Procedure NamePriorityDate/TimeAssociated DiagnosisCommentsPROTEIN ELECTROPHORESIS SERUM (P)Guvwzon6009/12/2025 11:17 AM EDT Waldenstrom macroglobulinemia (HCC) PROTEIN, TOTAL (FOR SEPG)Bdeimdg3009/12/2025 11:17 AM EDT Waldenstrom macroglobulinemia (HCC) FNINckyyim87/20/2025 11:17 AM EDT Waldenstrom macroglobulinemia (HCC) KAPPA/LOU,FREE,EJESoayamc85/20/2025 11:17 AM EDT Waldenstrom macroglobulinemia (HCC) PROTEIN ELECTROPHORESIS SERUM W/MLBEEBYoghcws57/20/2025 11:17 AM EDT Waldenstrom macroglobulinemia (HCC) LD LACTATE QDRKXPEXnlbdom10/20/2025 11:17 AM EDT Waldenstrom macroglobulinemia (HCC) COMPREHENSIVE METABOLIC DUEAGJtibsym52/20/2025 11:17 AM EDT Waldenstrom macroglobulinemia (HCC) CBC + XVXFTvswpib78/20/2025 11:17 AM EDT Waldenstrom macroglobulinemia (HCC) from Last 3 Months Results * PROTEIN, TOTAL (FOR SEPG) (09/12/2025 11:17 AM EDT)ComponentValueRef RangeTest MethodAnalysis TimePerformed AtPathologist SignatureProtein, Total6.36.3 - 8.0 g/dL09/12/2025 5:25 PM EDTCTHE [facility]LEVUE [facility] MAIN LABSpecimen (Source)Anatomical Location / LateralityCollection Method / VolumeCollection TimeReceived Time BloodBLOOD SPECIMEN / UnknownVenipuncture / Ncqupvb1609/12/2025 11:17 AM EDT 09/12/2025 11:17 AM EDT Narrative Authorizing ProviderResult TypeResult StatusAdars Vennepureddy MDLABORATORY Final ResultPerforming OrganizationAddressCity/State/ZIP CodePhone Number [facility] [address] * (ABNORMAL) PROTEIN ELECTROPHORESIS SERUM (P) (09/12/2025 11:17 AM EDT) ComponentValueRef RangeTest MethodAnalysis TimePerformed AtPathologist SignatureAlbumin for SPE4.243.43 - 5.41 g/dL09/14/2025 3:50 PM EDTCTHE BELLEVUE HOSPITAL MAIN LABAlpha 1 Globulin0.280.18 - 0.43 g/dL09/14/2025 3:50 PM EDT [facility] MA[facility] LABAlpha 2 Globulin0.570.42 - 0.98 g/dL09/14/2025 3:50 PM EDTCTHE BELLEVUE [facility] MAIN LABBeta Globulin0.630.61 - 1.17 g/dL09/14/2025 3:50 PM EDTCTHE BELLEVUE [facility] MAIN LABGamma Globulin0.570.53 - 1.51 g/dL 09/14/2025 3:50 PM EDTCTHE BELLEVUE HOSPITAL MAIN LABInterpretation (Prot Electro)An M protein is identified on protein electrophoresis.(A)No definitive M protein is identified on protein electrophoresis.09/14/2025 3:50 PM [facility] LABInterpretation Comment for Protein ElectrophoresisRecommend monoclonal protein analysis to further characterize the M protein.09/14/2025 3:50 PM [facility] LABM-Protein LocationGamma Fraction 1 09/14/2025 3:50 PM [facility] MA[facility] LABM-Protein Concentration0.23(H) <=0.00 g/dL09/14/2025 3:50 PM [facility] LABSPE Staff Review Reviewed by Gabi Jaramillo M.D., Ph.D1 3:50 PM [facility] LABSpecimen (Source)Anatomical Location / LateralityCollection Method / VolumeCollection TimeReceived TimeBloodBLOOD SPECIMEN / Unknown Venipuncture / Nbvqhvf3109/12/2025 11:17 AM EDT1 11:17 AM EDT Narrative [facility] - 09/14/2025 3:50 PM EDT Serum electrophoresis test was performed using the CelluFuel V8 NEXUS capillary electrophoresis method. Results obtained with different assay methods or kits cannot be used interchangeably. Authorizing ProviderResult TypeResult StatusAdarsh Vennepureddy MDLABORATORY Final ResultPerforming OrganizationAddressCity/State/ZIP CodePhone Number [facility] [address] * (ABNORMAL) KAPPA/LOU,FREE,SER (09/12/2025 11:17 AM EDT)ComponentValueRef RangeTest MethodAnalysis TimePerformed AtPathologist SignatureKappa Free, Serum60.0(H)3.3 - 19.4 mg/L1 2:33 PM EDMER[facility] Comment: Rarely, increased serum free light chains levels may not be detected or accurately quantified due to prozone phenomenon or in high viscosity samples using this immunoturbidimetric assay. Correlation with other laboratory results and clinical findings is recommended. The [place] Free Light Chain was performed using the Binding Site Optilite immunoturbidimetric method. Result obtained with different assay methods or kits cannot be used interchangeably. Lambda Free, Serum8.45.7 - 26.3 mg/L1 2:33 PM EDTCTHE BELLEVUE [facility] MAIN LABComment: Rarely, increased serum free light chains [...] K/L Ratio, Serum7.14(H)0.26 - 1.6509/13/2025 2:33 PM EDTCTHE BELLEVUE [facility] MAIN LABSpecimen (Source)Anatomical Location / LateralityCollection Method / Volume Collection TimeReceived TimeBloodBLOOD SPECIMEN / UnknownVenipuncture / Unknown 09/12/2025 11:17 AM EDT1 11:17 AM EDT Narrative Authorizing ProviderResult TypeResult StatusAdashoaib Barnhart MDLABORATORY Final ResultPerforming OrganizationAddressCity/State/ZIP CodePhone Number [facility] [address] * LACTATE DEHYDROGENASE (09/12/2025 11:17 AM EDT)ComponentValueRef RangeTest MethodAnalysis TimePerformed AtPathologist WjokzjlblVT874957 - 214 U/L 09/12/2025 12:24 PM EDTNORTMACKINAC STRAITS HOSPITAL LABComment: Hemolysis present. The origin of [...] Barnhart MDLABORATORY Final ResultPerforming OrganizationAddressCity/State/ZIP CodePhone Number [facility] [address] [place] [address] * (ABNORMAL) IMMUNOGLOBULIN M (09/12/2025 11:17 AM EDT)ComponentValueRef Range Test MethodAnalysis TimePerformed AtPathologist FwmvxbxliPfK880(H)40 - 230 mg/dL09/13/2025 10:34 AM EDTCTHE BELLEVUE [facility] MAIN LABSpecimen (Source) Anatomical Location / LateralityCollection Method / VolumeCollection Time Received TimeBloodBLOOD SPECIMEN / UnknownVenipuncture / Qlakifg6109/12/2025 11:17 AM EDT1 11:17 AM EDT Narrative Authorizing ProviderResult TypeResult StatusAdars Vennepureddy MDLABORATORY Final ResultPerforming OrganizationAddressCity/State/ZIP CodePhone Number [facility] [address] [place] [address], * (ABNORMAL) COMPREHENSIVE METABOLIC PANEL (09/12/2025 11:17 AM EDT)Component ValueRef RangeTest MethodAnalysis TimePerformed AtPathologist Signature Protein, Total6.46.3 - 8.0 g/dL09/12/2025 12:23 PM EDTNORTHCST [facility] LABAlbumin4.33.9 - 4.9 g/dL09/12/2025 12:23 PM EDTNORTMACKINAC STRAITS [facility] LABCalcium, Total10.3(H)8.5 - 10.2 mg/dL09/12/2025 12:[address] [facility] LABBilirubin, Total0.80.2 - 1.3 mg/dL09/12/2025 12:23 PM EDTNORTHCOAST [facility] LABAlkaline Qvcmjcdgoyf8134 - 123 U/L1 12:23 PM EDTNORTHCOAST [facility] JCOKFA7608 - 35 U/L1 12:23 PM EDTNORTHCOAST [facility] WTJAHQ681 - 38 U/L1 12:23 PM EDTNORTMACKINAC STRAITS [facility]PITAL CZJKpwoujk927(H)74 - 99 mg/dL09/12/2025 12:23 PM [facility] LABComment: The [place] Diabetes Association (ADA) provides guidance for cutoff [...] Standards of Medical Care in Diabetes 2016, [place] Diabetes Association. Diabetes Care. 2016.39(Suppl 1). BUN23(H)7 - 21 mg/dL09/12/2025 12:23 PM [facility] LAB Creatinine0.810.58 - 0.96 mg/dL09/12/2025 12:23 PM [facility] RIANfsldw524(H)136 - 144 mmol/L1 12:23 PM [facility] LABPotassium4.33.7 - 5.1 mmol/L1 12:23 PM [facility] CKKAujavmpt68627 - 107 mmol/L1 12:23 PM EDT [facility] IJVSS84349 - 30 mmol/L1 12:23 PM T [facility] LABAnion Gap16(H)8 - 15 mmol/L1 12:23 PM [facility] LABEstimated Glomerular Filtration Rate 74>=60 mL/min/1.73m 09/12/2025 12:23 PM [facility] LABComment:Estimated Glomerular Filtration Rate (eGFR) is calculated [...] VolumeCollection TimeReceived TimeBloodBLOOD SPECIMEN / UnknownVenipuncture / Uugxoip4409/12/2025 11:17 AM EDT1 11:17 AM EDT Narrative Authorizing ProviderResult TypeResult StatusAdarsh Vennepureddy MDLABORATORY Final ResultPerforming OrganizationAddressCity/State/ZIP CodePhone Number [facility] [address] [place] [address] * (ABNORMAL) COMPLETE BLOOD COUNT AND DIFFERENTIAL (09/12/2025 11:17 AM EDT) ComponentValueRef RangeTest MethodAnalysis TimePerformed AtPathologist SignatureWBC3.703.70 - 11.00 k/uL09/12/2025 11:33 AM EDTNORTMACKINAC STRAITS [facility]PITAL LABRBC5.44(H)3.90 - 5.20 m/uL09/12/2025 11:33 AM [facility] MGBKztdjonbju48.9(H)11.5 - 15.5 g/dL09/12/2025 11:33 AM [facility] XRKTacseaequk77.4(H)36.0 - 46.0 % 09/12/2025 11:33 AM EDTNORTMACKINAC [facility] BBMWSX38.080.0 - 100.0 fL09/12/2025 11:33 AM EDTNORTMACKINAC [facility] MCTDPP73.2 26.0 - 34.0 pg09/12/2025 11:33 AM EDTNORTMACKINAC [facility] LABMCHC 32.930.5 - 36.0 g/dL09/12/2025 11:33 AM [facility] LABRDW-CV13.211.5 - 15.0 %09/12/2025 11:33 AM [facility]TNOREYNOLDS [facility] LABPlatelet Alyjf579272 - 400 k/uL09/12/2025 11:33 AM [facility]TNOREYNOLDS [facility] LABMPV8.8(L)9.0 - 12.7 fL09/12/2025 11:33 AM EDT [facility] LABNeutrophils %55.7%09/12/2025 11:33 AM EDT [facility] LABAbs Neut2.061.45 - 7.50 k/uL09/12/2025 11:33 AM [facility]TNOREYNOLDS [facility] LABLymphocytes %34.3%09/12/2025 11:33 AM [facility] LABAbs Lymph1.271.00 - 4.00 k/uL 09/12/2025 11:33 AM [facility] LABMonocytes %8.1% 09/12/2025 11:33 AM [facility]NOREYNOLDS [facility] LABAbs Mono0.30<0.87 k/uL09/12/2025 11:33 AM ED[facility] LABEosinophils % 0.8%09/12/2025 11:33 AM ED[facility] LABAbs Eosin0.03 <0.46 k/uL09/12/2025 11:33 AM [facility] Basophils %0.8%09/12/2025 11:33 AM ED[facility] LABAbs Baso0.03<0.11 k/uL09/12/2025 11:33 AM [facility] LAB Immature Granulocytes %0.3%09/12/2025 11:33 AM [facility]TNOREYNOL[facility] LABAbs Immature Gran<0.03<0.10 k/uL09/12/2025 11:33 AM [facility] LABNRBC0.0/100 WBC09/12/2025 11:33 AM [facility]TNOREYNOL[facility] LABAbsolute nRBC<0.01<0.01 k/uL09/12/2025 11:33 AM EDT [facility] LABDiff BzwxOmfq83/20/2025 11:33 AM EDT [facility] LABSpecimen (Source)Anatomical Location / LateralityCollection Method / VolumeCollection TimeReceived TimeBloodBLOOD SPECIMEN / UnknownVenipuncture / Sxdouvi3909/12/2025 11:17 AM EDT1 11:17 AM EDT Narrative Authorizing ProviderResult TypeResult StatusAdarsh Vennepureddy MDLABORATORY Final ResultPerforming OrganizationAddressCity/State/ZIP CodePhone Number [facility] [address] [place] [address] from Last 3 Months Insurance * Guarantor: Susanna Minaya AAccount TypeRelation to PatientDate of BirthPhone Billing AddressSelf OfiGowq6505/05/1945 [address] [place] [address] [place] [address] Care Teams Team MemberRelationshipSpecialtyStart DateEnd Date [place] [address] [place] [address] [address] [place] [address] PCP - GeneralFamily Medicine12/20/13 Raymundo Barnhart MD [address] [place] [address] [place] [address] Hematology/Nsfhkdpb68/20/25
--- OUTSIDE RECORDS SUMMARY | 2025-11-09 11:15 | XMS_ITS | Clinical Summary ---
Author Organization [facility] Address [address] [place] [address], [address] [place] [address] Care Team Providers Care Shipwright Supervisor Name Role Phone Unavailable Primary Care Provider Unavailabl e Social History Tobacco UseTypesPacks/DayYears UsedDateSmoking Tobacco: Never Assessed CommentsUnknownSex and Gender InformationValueDate RecordedSex Assigned at Not on fileLegal UapAlsobk54/17/2014 5:28 PM ESTGender IdentityNot on fileSexual OrientationNot on file Plan of Treatment Not on file
--- OUTSIDE RECORDS SUMMARY | 2025-11-09 11:15 | XMS_ITS ---
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 Peripheral vision looks ok Plan: - Follow serum viscosity - Pheresis today - Prednisone 40 mg QD - PPI for GI prophylaxis - BM Bx tomorrow Central loss of voyrva4212/13/2013 Overview (12/13/2013): Original presenting symptom Peripheral huang [...]
== END 2025-11-09 11:06 | disposition home or self-care (01) ==
LOC: PST 11:10
PROVIDERS: PCP Family Medicine; Visit Provider Urology
DX: Z01.818 Encounter for other preprocedural examination (principal); N13.2 Hydronephrosis with renal and ureteral calculous obstruction

== ENCOUNTER 2025-11-23 11:09 | Day surgery (SDC) | payer MEDICARE, SELFPAY ==
--- OUTSIDE RECORDS SUMMARY | 2025-11-14 23:59 | XMS_ITS | Continuity of Care Document ---
Author Organization [facility] Address Unknown Care Team Providers Care Outsole Cementer Name Role Phone Manjinder COOK Primary Care Physician [phone] Dayana Garcia Unavailable Unavailable Encounter FT_FIN [id number] Date(s): 11/14/25 - 11/14/25 [facility] [address] [place] [address]- Discharge Disposition: Home (Routine DC) Attending Physician: Lyn Landeros MD Admitting Physician: Lyn Landeros MD Encounter Type: Lab Drop off Allergies, Adverse Reactions, Alerts SubstanceCriticalitySeverityReactionReaction SeverityStatusgabapentinHigh criticalityModerateSickActiveDustItchy, watery, and red eyeActivePollenItchy eyesActiveVelcadeNeuropathyActiveLyricaHigh criticalitySevereUnknownActive Treatment Plan Future Appointments Appointment Date:12/01/2025 10:40:00 AM Scheduled Provider:Manjinder COOK DO, FAAFP Location:[facility] Appointment Type: Open Appointment Date:01/20/2026 11:00:00 AM Scheduled Provider: Location:[facility] Appointment Type: Medicare Wellness Subsequent Diagnostic Tests Pending * Urine Culture 11/14/25 Future Scheduled Tests Laboratory* Lipid Panel 01/18/25 * Lipid Panel 05/17/25 Immunizations Given and Recorded VaccineDateStatusRefusal Reasonzoster vaccine, whswdmlgyfu42/29/25Recordedzoster vaccine, ytllmatrdla77/16/23Recordedzoster vaccine, inactivated11/24/09Recorded influenza virus vaccine, inactivated08/05/25Recordedinfluenza virus vaccine, kfuxudbjkpb06/31/24Recordedinfluenza virus vaccine, frupvcvcrks55/2/23Recorded influenza virus vaccine, wxlhhvumsyl00/12/22Recordedinfluenza virus vaccine, zmomudzznfe40/2/18Recordedinfluenza virus vaccine, oqzmkqounvp45/1/18Recorded influenza virus vaccine, crvdsczwnju36/10/16Recordedinfluenza virus vaccine, nmwsblvcapm06/2/15Recordedinfluenza virus vaccine, sqkpjwfdazw89/2/14Recorded SARS-CoV-2 mRNA (tozinameran 5y-11y) ymy688Recorded tetanus/diphtheria/pertussis, acel (Tdap) 5 units-2.5 units-18.5 mcg/0.5 mL intramuscular suspension05/08/2363DbwwwFRAP-ExU-5 (COVID-19) mRNAMUL.ORD!b79066 12/05/2206FxayckvzOWCH-VzS-3 (COVID-19) mRNA-1273 vaccine6Recordedinfluenza virus vaccine, inactivated HIGH DOSE preservative-free quadrivalent intramuscular susp12/03/21Giveninfluenza virus vaccine, inactivated HIGH DOSE preservative-free quadrivalent intramuscular susp08/31/20GivenModerna COVID-19 Upqqnxq039/27/21RecordedModerna COVID-19 Rygyczd38/RecordedModerna COVID-19 Jgqicgb36Recordedpneumococcal 23-valent sdfzhox39Recordedpneumococcal 13-valent tqtnmer19/2/15Recorded 1Result Comment: Given at [facility] 2Result Comment: DDM 3Result Comment: DDM 4Result Comment: DDM Medications Biofreeze Topical, Refill(s) 0 Start Date: 11/13/23 Status: Ordered Medication Dispense Status: Completed Total Allowed Fills: 1 Fills Dispensed: 0 Claritin 10 mg, Oral, Daily, PRN Allergy symptoms, Refills(s) 0, Allergy symptoms Start Date: 07/24/18 Status: Ordered Medication Dispense Status: Completed Total Allowed Fills: 1 Fills Dispensed: 0 Flomax 0.4 mg Cap 0.4 mg = 1 cap(s), Oral, Daily, # 30 cap(s), Refills(s) 0, Pharmacy: [facility], 160, cm, 10/11/25 3:09:00 EST, Height/Length Dosing, 66.4, kg, 10/11/25 3:09:00 EST, Weight Dosing Start Date: 10/12/25 Status: Ordered Medication Dispense Status: Completed Quantity: 30.0 Unit: cap(s) Total Allowed Fills: 1 Fills Dispensed: 0 Indications: Calculus of ureter; Levsin 0.125 mg SL Tab 0.125 mg = 1 tab(s), Oral, QID, PRN for spasm, # 40 tab(s), Refills(s) 0, Pharmacy: [facility], 160, cm, 10/11/25 3:09:00 EST, Height/Length Dosing, 66.4, kg, 10/11/25 3:09:00 EST, Weight Dosing Start Date: 10/12/25 Status: Ordered Medication Dispense Status: Completed Quantity: 40.0 Unit: tab(s) Total Allowed Fills: 1 Fills Dispensed: 0 melatonin 10 mg, Oral, Once a day (at bedtime), Refills(s) 0 Start Date: 11/13/23 Status: Ordered Medication Dispense Status: Completed Total Allowed Fills: 1 Fills Dispensed: 0 Tylenol 325 mg Tab 325 mg, Refills(s) 0 Start Date: 10/11/25 Status: Ordered Medication Dispense Status: Completed Total Allowed Fills: 1 Fills Dispensed: 0 Problem List ConditionConfirmationCourseEffective DatesStatusHealth StatusInformantAK (actinic keratosis)ConfirmedActiveArthritisConfirmedResolvedBleeding disorder ConfirmedResolvedScotoma of blind spot area in visual fieldConfirmedActiveBMI 30.0-30.9,adultConfirmedResolvedCataractsConfirmedResolvedCellulitis of arm, left (preventative 2* to recent hardware and osteomylitis prevention)Confirmed ResolvedCentral vein occlusion of retina OS>ODConfirmedActiveChronic insomnia ConfirmedActiveFemale cystoceleConfirmedActiveIntermittent diarrheaConfirmed ActiveDiverticulitisConfirmedResolvedDiverticulosis of colonConfirmedResolved GallstonesConfirmedResolvedH/O osteoporosisConfirmedResolvedH/O: mumpsConfirmed ResolvedVentral hernia, congenitalConfirmedActiveHernia repairConfirmedResolved Hyperviscosity syndromeConfirmed12/10/13ResolvedInsomniaConfirmed< 04/09/19 ResolvedKidney stonesConfirmedActiveModerate major depressionConfirmedActive 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 stone with hydronephrosisConfirmedActiveOsteoporosisConfirmedActiveColon cancer screening ConfirmedActiveWell adult examConfirmedActivePneumoniaConfirmedResolvedShort- term memory 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 Retinal hemorrhageConfirmedActiveRing avulsion injury of finger of right hand ConfirmedResolvedSciatica of right side without back painConfirmedActive Seborrheic keratosisConfirmedActiveUreteral stricture, leftConfirmedActive Waldenstrom macroglobulinemiaConfirmedResolvedWaldenstroms macroglobulinemia ConfirmedActiveWidowConfirmedActive Procedures ProcedureDateRelated DiagnosisBody SiteStatusCystoscopy w stent10/11/25Completed Incisional hernia07/02/23CompletedCataract extraction and insertion of intraocular lens09/06/20CompletedCataract extraction and insertion of intraocular lens1 05/05/18CompletedSurgery of left broken list11/24/17CompletedBone marrow biopsy CompletedCholecystectomyCompletedColonic polypCompletedColonoscopyCompleted Excision of tonsilCompletedHernia repairCompletedHistory of knee surgery CompletedMenopauseCompletedPeriodontal surgeryCompletedplasmaphoresisCompleted TonsillectomyCompletedTubal ligationCompleted 1CATARACT EXTRACTION RIGHT EYE WITH IOL, Right Social History Social History TypeResponseSmoking StatusFormer smoker, quit more than 30 days ago; Concerns about tobacco use in household: No1 entered on: 10/26/25Birth SexFemaleSex Representation 1denies use, started approx. age 22 1ppd, quit many times on and off, total cessaion was age [age] Implantable Device List ProcedureProviderProcedure DateDevice TypeSiteCYSTOSCOPY RETROGRADE STENT INSERTIONLyn Landeros MD10/11/25UnknownUreter LDevice IdentifierSerial Number Lot or Batch NumberManufacturing DateExpiration DateDistinct Identification Code MRI SafetyImplantable StatusAssigning [id number] 09/17/28UnknownUnknownActiveUnknown ProcedureProviderProcedure DateDevice TypeSiteHERNIA REPAIR, ROBOT ASSISTED Benjamin Mclaughlin MD07/02/23Non BiologicalAbdomenDevice IdentifierSerial NumberLot or Batch NumberManufacturing DateExpiration DateDistinct Identification CodeMRI SafetyImplantable StatusAssigning [id number] 03/23/27UnknownMR ConditionalActiveGS1 ProcedureProviderProcedure DateDevice TypeSiteCATARACT EXTRACTION W/ INTRAOCULAR LENSCamden Parikh DO09/06/20Non BiologicalEye LDevice IdentifierSerial Number Lot or Batch NumberManufacturing DateExpiration DateDistinct Identification Code MRI SafetyImplantable StatusAssigning [id number] Nlmojfw67/31/08RhpviwhBrwanqnPtgmnuAK2 Patient Care team information Care Team Personnel Name: Justen Levi DO Position: Oncologist Member Role: Oncologist Address: [facility] [address] Name: Manjinder COOK DO, FAAFP Position: FT Ambulatory - Primary Care Provider? Member Role: Primary Care Physician Address: [address] [facility] [address], [address] [place], [place] [address] Telecom: Name: Courtney Leger RN Position: FT Apartment Maintenance - Self Assign Member Role: Metal Casket Assembler Name: Camden Parikh DO Position: FT Physician Member Role: Librarian Special Library Address: [address] [address] Telecom: Care Team Related Persons Name: JIGNA PERALES Name: Keith Minaya Name: KEITH MINAYA Insurance Providers Guarantor name: ZAID Jenny TRUMAN Health Plan Information #: 1 Payer: MEDICARE Payer Identifier: [id number] Member Number: [id number] Group Number: [id number] Subscriber Identifier: [id number] Relationship to Subscriber: Self/Patient Coverage Type: Medicare Coverage Verification Date: NA Telecom: [phone] Address: [id number] [place] [address] Health Plan Information #: 2 Payer: Miscellaneous Insurance Company Payer Identifier: NA Member Number: [id number] Group Number: [id number] Subscriber Identifier: [id number] Relationship to Subscriber: Self/Patient Coverage Type: Private Health Insurance Coverage Verification Date: Telecom: Address: [address] [place] Medicare [place] [address] [place] [address]-
--- OUTSIDE RECORDS SUMMARY | 2025-11-14 23:59 | XMS_ITS | Continuity of Care Document ---
Author Organization [facility] Address [address], [address] [place] [address] Care Team Providers Care Bolt Machine Operator Name Role Phone Manjinder COOK Primary Care Physician Dayana Garcia Unavailable Unavailable Encounter FT_AMBFIN [id number] Date(s): 11/14/25 - 11/14/25 [facility] [address] [place] [address]- [place] Encounter Diagnosis Pre-op testing(Discharge Diagnosis) - 11/14/25 Microhematuria(Discharge Diagnosis) - 11/14/25 UTI symptoms(Discharge Diagnosis) - 11/14/25 Discharge Disposition: Home (Routine DC) Attending Physician: Krystal Bolden Encounter Type: Clinic Allergies, Adverse Reactions, Alerts SubstanceCriticalitySeverityReactionReaction SeverityStatusgabapentinHigh criticalityModerateSickActiveDustItchy, watery, and red eyeActivePollenItchy eyesActiveVelcadeNeuropathyActiveLyricaHigh criticalitySevereUnknownActive Treatment Plan Future Appointments Appointment Date:12/01/2025 10:40:00 AM Scheduled Provider:Manjinder COOK DO, FAAFP Location:[facility] Appointment Type: Open Appointment Date:01/20/2026 11:00:00 AM Scheduled Provider: Location:[facility] Appointment Type:FM Medicare Wellness Subsequent Future Scheduled Tests Laboratory* Lipid Panel 01/18/25 * Lipid Panel 05/17/25 Immunizations Given and Recorded VaccineDateStatusRefusal Reasonzoster vaccine, timkyqhybfp25/29/25Recordedzoster vaccine, hrghjwqiwtp32/16/23Recordedzoster vaccine, inactivated11/24/09Recorded influenza virus vaccine, inactivated08/05/25Recordedinfluenza virus vaccine, ippicihznnt08/31/24Recordedinfluenza virus vaccine, cbcpgrzefmz86/2/23Recorded influenza virus vaccine, bnxcgqakjxp98/12/22Recordedinfluenza virus vaccine, ajuufjknjfh64/2/18Recordedinfluenza virus vaccine, mimzxwiqznd96/1/18Recorded influenza virus vaccine, nenslrozlsn06/10/16Recordedinfluenza virus vaccine, koimfjsgkzn63/2/15Recordedinfluenza virus vaccine, opxbtmbxhfx61/2/14Recorded SARS-CoV-2 mRNA (katelyneran 5y-11y) ola025Recorded tetanus/diphtheria/pertussis, acel (Tdap) 5 units-2.5 units-18.5 mcg/0.5 mL intramuscular suspension05/08/2352RsfwlYNJH-JzQ-2 (COVID-19) mRNAMUL.ORD!q50277 12/05/2213IaekmcwrOOWP-BrD-2 (COVID-19) mRNA-1273 vaccine6Recordedinfluenza virus vaccine, inactivated HIGH DOSE preservative-free quadrivalent intramuscular susp12/03/21Giveninfluenza virus vaccine, inactivated HIGH DOSE preservative-free quadrivalent intramuscular susp08/31/20GivenModerna COVID-19 Vzzojdv194/27/21RecordedModerna COVID-19 Bxftuxj02/29/21RecordedModerna COVID-19 Kauqizm21Recordedpneumococcal 23-valent cqswmqn16Recordedpneumococcal 13-valent clynjlc23/2/15Recorded 1Result Comment: Given at [facility] 2Result Comment: DDM 3Result Comment: DDM 4Result [...] Daily, # 30 cap(s), Refills(s) 0, Pharmacy: [facility], 160, cm, 10/11/25 3:09:00 EST, Height/Length Dosing, 66.4, kg, 10/11/25 3:09:00 EST, Weight Dosing Start Date: 10/12/25 Status: Ordered Medication Dispense Status: Completed Quantity: 30.0 Unit: cap(s) Total Allowed Fills: 1 Fills Dispensed: 0 Indications: Calculus of ureter; Levsin 0.125 mg SL Tab 0.125 mg = 1 tab(s), Oral, QID, PRN for spasm, # 40 tab(s), Refills(s) 0, Pharmacy: [facility] 1985, 160, cm, 10/11/25 3:09:00 EST, Height/Length [...] Device List ProcedureProviderProcedure DateDevice TypeSiteCYSTOSCOPY RETROGRADE STENT INSERTIONTigre SHELTON, Lyn Goff10/11/25UnknownUreter LDevice IdentifierSerial Number Lot or Batch NumberManufacturing DateExpiration DateDistinct Identification Code MRI SafetyImplantable StatusAssigning [id number] 09/17/28UnknownUnknownActiveUnknown ProcedureProviderProcedure DateDevice TypeSiteHERNIA REPAIR, ROBOT ASSISTED Lissette SHELTON, Benjamin Alejandro07/02/23Non BiologicalAbdomenDevice IdentifierSerial NumberLot or Batch NumberManufacturing DateExpiration DateDistinct Identification CodeMRI SafetyImplantable StatusAssigning [id number] 03/23/27UnknownMR ConditionalActiveGS1 ProcedureProviderProcedure DateDevice TypeSiteCATARACT EXTRACTION W/ INTRAOCULAR LENSCamden Parikh DO09/06/20Non BiologicalEye LDevice IdentifierSerial Number Lot or Batch NumberManufacturing DateExpiration DateDistinct Identification Code MRI SafetyImplantable StatusAssigning [id number] Zuxowzs56/31/48PvicmffIwmwqlpVekkhbKB8 Patient Care team information Care Team Personnel Name: Justen Levi DO Position: Oncologist Member Role: Oncologist Address: [facility] [address] [place] [address]- Name: Manjinder COOK DO, FAAFP Position: Ambulatory - Primary Care Provider? Member Role: Primary Care Physician Address: [address] [facility] Telecom: Name: Courtney Leger RN Position: Plastic Sheeting Cutter - Self Assign Member Role: Electric Arc Furnace Operator Name: Camden Parikh DO Position: FT Physician Member Role: Structural Drafter Address: [address] [place] [address] Telecom: Care Team Related Persons Name: JIGNA PERALES Name: Keith Minaya Name: KEITH MINAYA Insurance Providers Guarantor name: ZAID Alvarado TRUMAN Health Plan Information #: 1 Payer: MEDICARE Payer Identifier: [id number] Member Number: [id number] Group Number: [id number] Subscriber Identifier: [id number] Relationship to Subscriber: Self/Patient Coverage Type: Medicare Coverage Verification Date: 25 Telecom: [phone] Address: [facility] [id number] [place] [address] Health Plan Information #: 2 Payer: Miscellaneous Insurance Company Payer Identifier: NA Member Number: [id number] Group Number: [id number] Subscriber Identifier: [id number] Relationship to Subscriber: Self/Patient Coverage Type: Private Health Insurance Coverage Verification Date: NA Telecom: ZACARIAS Address: [address] [place] Medicare [address] [place], [place] [address]
[2025-11-23] VITALS (13 sets, daily range): BP systolic 126–157; BP diastolic 58–83; PULSE 78–103; TEMP 36.2–36.5; O2SAT 94–100; BMI 25.5
--- OUTSIDE RECORDS SUMMARY | 2025-11-23 11:13 | XMS_ITS ---
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 Peripheral vision looks ok Plan: - Follow serum viscosity - Pheresis today - Prednisone 40 mg QD - PPI for GI prophylaxis - BM Bx tomorrow Central loss of ifsvfn8912/13/2013 Overview (12/13/2013): Original presenting symptom Peripheral huang [...]
--- OUTSIDE RECORDS SUMMARY | 2025-11-23 11:13 | XMS_ITS | Clinical Summary ---
Author Organization [facility] Address [address] [place] [address], [address] [place] [address] Care Team Providers Care Victims Advocate Clerk/Specialist Name Role Phone Unavailable Primary Care Provider Unavailabl e Social History Tobacco UseTypesPacks/DayYears UsedDateSmoking Tobacco: Never Assessed CommentsUnknownSex and Gender InformationValueDate RecordedSex Assigned at Not on fileLegal ZnoYhdlxq38/17/2014 5:28 PM ESTGender IdentityNot on fileSexual OrientationNot on file Plan of Treatment Not on file
--- OUTSIDE RECORDS SUMMARY | 2025-11-23 11:13 | XMS_ITS | Clinical Summary ---
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 Peripheral vision looks ok Plan: - Follow serum viscosity - Pheresis today - Prednisone 40 mg QD - PPI for GI prophylaxis - BM Bx tomorrow Central loss of vvhwvd0112/13/2013 Overview (12/13/2013): Original presenting symptom Peripheral huang mostly intact Describes subjective greying of central field on left eye Plan As per Hyperviscosity Encounters DateTypeDepartmentCare ItdyOxelszblaoj11/20/2025 10:40 AM EDTVisit (SP) Office Hematology/Oncology [address] [place] [address] [place] [address] Raymundo Barnhart MD Waldenstrom macroglobulinemia (HCC) (Primary Dx)09/12/2025Travelfrom Last 3 Months Immunizations ImmunizationAdministration DatesNext Duepneumococcal polysaccharide (PPV23) vaccine, 23 valent (PNEUMOVAX 23)12/11/2013 Family History Medical HistoryRelationCommentsBlindnessMotherCancerMotherHypertensionMother DiabetesSisterRelationStatusCommentsMotherSister Social History Tobacco UseTypesPacks/DayYears UsedDateSmoking Tobacco: KfmzysCpgzdwlgrf3Bshd: 12/14/1999Passive Smoke Exposure: PastSmokeless Tobacco: Never Tobacco Cessation:Counseling Given: Not Answered Alcohol UseStandard Drinks/WeekCommentsNot Currently1 (1 standard drink = 0.6 oz pure alcohol)Area Deprivation IndexAnswerDate RecordedNational Score (1-100), lower number is lower unly760906/16/2025State Score (1-10), lower number is lower ghid862Data from: https://www.neighborhoodatlas.medicine.[facility].edu/. Last address used for usyj[address]rsi[address]06/16/2025CommentsNoSex and Gender InformationValueDate RecordedSex Assigned at BirthNot on fileLegal Sex Fubcew7112/10/2013 8:25 PM ESTGender IdentityNot on fileSexual OrientationNot on file Last Filed Vital Signs Vital SignReadingTime TakenCommentsBlood Vepxhthf743/8209/12/2025 10:42 AM EDT Zzkzn562709/12/2025 10:42 AM QHDYmbmaqermub03.4 ??C (97.6 ??F)09/12/2025 10:42 AM EDTRespiratory Kzaw4063 10:42 AM EDTOxygen Xbuytquhvq34%09/12/2025 10:42 AM EDTInhaled Oxygen Concentration--Xzlpqz94.9 kg (143 lb 1.3 oz)09/12/2025 10:42 AM QJVFohraa801.6 cm (5' 4 )06/13/2014 10:35 AM EDTBody Mass Index-- Plan of Treatment DateTypeDepartmentCare Team (Latest Contact Info)Umglwhlwfkk27/20/2026 2:15 PM ESTAppointment Radiology [address] CT [address] [place] [place] [address] CT Chest without wnhtdeve84/20/2026 11:15 AM EDTOffice Visit [facility] [address] [place] [address] [place] [address] 6 month follow up with lab03/13/2026 11:30 AM EDTVisit (SP) Office Hematology/Oncology [address] [place] [address] Lydia Duncan, JACQUELIN.NET ARCHITECT [address] [place] [place] [address] 6 month follow up with labHealth MaintenanceDue DateLast DoneCommentsAnxiety Jxmsubtuy99/12/1965Depression Tgsihjidn97/12/1965Hepatitis C Efgxhgbqq65/12/1963 Medicare Annual Wellness Visit04/24/2012one Density Elelftfwg66/12/2012RSV Vaccine (1 - 1-dose 75+ series)2022dvance Directive Pbtoedzgqw71/01/2025 Covid-19 Vaccine (2024- season), 12/05/2022, 04/30/2022, Additional history existsInfluenza Vaccine (#1), 08/25/2023, 09/04/2022, Additional history existsDiabetes Xjpgpoxdm26/20/2028 09/12/2025, 06/16/2025, 06/13/2014, Additional history existsDTaP,Tdap,Td Vaccine (2 - Td or Tdap)neumococcal Vaccine: 50+Completed 08/25/2018, 08/25/2015, 12/11/2013Cologuard (FIT-DNA)Sbdwhfojbter85/24/2022 Colorectal Cancer ScreeningDiscontinuedShingrix VpwunvkRygeccaco44/16/2023, 11/24/2009CT ColonographyDiscontinuedColonoscopyDiscontinuedFecal Occult Blood DiscontinuedSigmoidoscopyDiscontinued Procedures Procedure NamePriorityDate/TimeAssociated DiagnosisCommentsPROTEIN ELECTROPHORESIS SERUM (P)Fsjuefb7209/12/2025 11:17 AM EDT Waldenstrom macroglobulinemia (HCC) PROTEIN, TOTAL (FOR SEPG)Siwjlku6509/12/2025 11:17 AM EDT Waldenstrom macroglobulinemia (HCC) TPJOrqspwv76/20/2025 11:17 AM EDT Waldenstrom macroglobulinemia (HCC) KAPPA/LOU,FREE,LNMQhvvrpl09/20/2025 11:17 AM EDT Waldenstrom macroglobulinemia (HCC) PROTEIN ELECTROPHORESIS SERUM W/ISTKHNPstimgm73/20/2025 11:17 AM EDT Waldenstrom macroglobulinemia (HCC) LD LACTATE BUVMBOOAqrjvct04/20/2025 11:17 AM EDT Waldenstrom macroglobulinemia (HCC) COMPREHENSIVE METABOLIC ZXKPZTsxoklf17/20/2025 11:17 AM EDT Waldenstrom macroglobulinemia (HCC) CBC + CWFYXlcpoqm89/20/2025 11:17 AM EDT Waldenstrom macroglobulinemia (HCC) from Last 3 Months Results * PROTEIN, TOTAL (FOR SEPG) (09/12/2025 11:17 AM EDT)ComponentValueRef RangeTest MethodAnalysis TimePerformed AtPathologist SignatureProtein, Total6.36.3 - 8.0 g/dL09/12/2025 5:25 PM EDTCSOUTHWEST [facility] MAIN LABSpecimen (Source)Anatomical Location / LateralityCollection Method / VolumeCollection TimeReceived Time BloodBLOOD SPECIMEN / UnknownVenipuncture / Srhnhjb0709/12/2025 11:17 AM EDT 09/12/2025 11:17 AM EDT Narrative Authorizing ProviderResult TypeResult StatusAdars Vennepureddy MDLABORATORY Final ResultPerforming OrganizationAddressCity/State/ZIP CodePhone Number [facility] [address] * (ABNORMAL) PROTEIN ELECTROPHORESIS SERUM (P) (09/12/2025 11:17 AM EDT) ComponentValueRef RangeTest MethodAnalysis TimePerformed AtPathologist SignatureAlbumin for SPE4.243.43 - 5.41 g/dL09/14/2025 3:50 PM EDTCSOUTHWEST GENERAL [facility] MAIN LABAlpha 1 Globulin0.280.18 - 0.43 g/dL09/14/2025 3:50 PM EDT [facility] MAIN LABAlpha 2 Globulin0.570.42 - 0.98 g/dL09/14/2025 3:50 PM EDTCSOUTHWEST [facility] MAIN LABBeta Globulin0.630.61 - 1.17 g/dL09/14/2025 3:50 PM EDTCSOUTHWEST [facility] MAIN LABGamma Globulin0.570.53 - 1.51 g/dL 09/14/2025 3:50 PM EDTCSOUTHWEST [facility] MAIN LABInterpretation (Prot Electro)An M protein is identified on protein electrophoresis.(A)No definitive M protein is identified on protein electrophoresis.09/14/2025 3:50 PM [facility] MAIN LABInterpretation Comment for Protein ElectrophoresisRecommend monoclonal protein analysis to further characterize the M protein.09/14/2025 3:50 PM [facility] MAIN LABM-Protein LocationGamma Fraction 1 09/14/2025 3:50 PM [facility] MAIN LABM-Protein Concentration0.23(H) <=0.00 g/dL09/14/2025 3:50 PM [facility] LABSPE Staff Review Reviewed by Gabi Jaramillo M.D., Ph.D1 3:50 PM [facility] LABSpecimen (Source)Anatomical Location / LateralityCollection Method / VolumeCollection TimeReceived TimeBloodBLOOD SPECIMEN / Unknown Venipuncture / Klmbbmr2209/12/2025 11:17 AM EDT1 11:17 AM EDT Narrative [facility] - 09/14/2025 3:50 PM EDT Serum electrophoresis test was performed using the Grand Perfecta V8 NEXUS capillary electrophoresis method. Results obtained with different assay methods or kits cannot be used interchangeably. Authorizing ProviderResult TypeResult StatusAdarsh Vennepureddy MDLABORATORY Final ResultPerforming OrganizationAddressCity/State/ZIP CodePhone Number [facility] [address] * (ABNORMAL) KAPPA/LOU,FREE,SER (09/12/2025 11:17 AM EDT)ComponentValueRef RangeTest MethodAnalysis TimePerformed AtPathologist SignatureKappa Free, Serum60.0(H)3.3 - 19.4 mg/L1 2:33 PM EDMER[facility] Comment: Rarely, increased serum free light chains levels may not be detected or accurately quantified due to prozone phenomenon or in high viscosity samples using this immunoturbidimetric assay. Correlation with other laboratory results and clinical findings is recommended. The [place] Free Light Chain was performed using the Binding Site Optilite immunoturbidimetric method. Result obtained with different assay methods or kits cannot be used interchangeably. Lambda Free, Serum8.45.7 - 26.3 mg/L1 2:33 PM EDTCSOUTHWEST GENERAL [facility]ALTH [facility] MAIN LABComment: Rarely, increased serum free light [...] K/L Ratio, Serum7.14(H)0.26 - 1.6509/13/2025 2:33 PM EDTCSOUTHWEST [facility]AL [facility] MAIN LABSpecimen (Source)Anatomical Location / LateralityCollection Method / Volume Collection TimeReceived TimeBloodBLOOD SPECIMEN / UnknownVenipuncture / Unknown 09/12/2025 11:17 AM EDT1 11:17 AM EDT Narrative Authorizing ProviderResult TypeResult StatusAdashoaib Barnhart MDLABORATORY Final ResultPerforming OrganizationAddressCity/State/ZIP CodePhone Number [facility] * LACTATE DEHYDROGENASE (09/12/2025 11:17 AM EDT)ComponentValueRef RangeTest MethodAnalysis TimePerformed AtPathologist XcwhgaocgJJ241153 - 214 U/L 09/12/2025 12:24 PM EDTNORTMYMICHIGAN MEDICAL CENTER CLARE LABComment: Hemolysis present. The origin of the [...] Barnhart MDLABORATORY Final ResultPerforming OrganizationAddressCity/State/ZIP CodePhone Number [facility] [address] [place] [address] * (ABNORMAL) IMMUNOGLOBULIN M (09/12/2025 11:17 AM EDT)ComponentValueRef Range Test MethodAnalysis TimePerformed AtPathologist WdkqeejoyKsL931(H)40 - 230 mg/dL09/13/2025 10:34 AM EDTCSOUTHWEST [facility]AL [facility] MAIN LABSpecimen (Source) Anatomical Location / LateralityCollection Method / VolumeCollection Time Received TimeBloodBLOOD SPECIMEN / UnknownVenipuncture / Lzwuzuj1009/12/2025 11:17 AM EDT1 11:17 AM EDT Narrative Authorizing ProviderResult TypeResult StatusAdars Vennepureddy MDLABORATORY Final ResultPerforming OrganizationAddressCity/State/ZIP CodePhone Number [facility] [address] [place] [address], * (ABNORMAL) COMPREHENSIVE METABOLIC PANEL (09/12/2025 11:17 AM EDT)Component ValueRef RangeTest MethodAnalysis TimePerformed AtPathologist Signature Protein, Total6.46.3 - 8.0 g/dL09/12/2025 12:23 PM EDTNORTHCST HURLEY MEDICAL CENTER LABAlbumin4.33.9 - 4.9 g/dL09/12/2025 12:23 PM EDTNORTMYMICHIGAN MEDICAL CENTER CLARE LABCalcium, Total10.3(H)8.5 - 10.2 mg/dL09/12/2025 12:23 PM EDTNORTSAMARITAN HOSPITALST [facility] LABBilirubin, Total0.80.2 - 1.3 mg/dL09/12/2025 12:23 PM EDTNORTHCOAST HURLEY [facility] LABAlkaline Jjozjdhasse0306 - 123 U/L1 12:23 PM EDTNORTHCOAST HURLEY [facility] CUZBTS1538 - 35 U/L1 12:23 PM EDTNORTHCOAST HURLEY [facility] RNWCWR505 - 38 U/L1 12:23 PM EDTNORTMYMICHIGAN MEDICAL C[facility] CLARE OBVOdjfruc876(H)74 - 99 mg/dL09/12/2025 12:23 PM [facility] LABComment: The [place] Diabetes Association (ADA) provides guidance for cutoff [...] Standards of Medical Care in Diabetes 2016, [place] Diabetes Association. Diabetes Care. 2016.39(Suppl 1). BUN23(H)7 - 21 mg/dL09/12/2025 12:23 PM [facility] LAB Creatinine0.810.58 - 0.96 mg/dL09/12/2025 12:23 PM [facility] XUXNrycgh904(H)136 - 144 mmol/L1 12:23 PM [facility] LABPotassium4.33.7 - 5.1 mmol/L1 12:23 PM [facility] FCRRratevyo60268 - 107 mmol/L1 12:23 PM EDT [facility] IHKQE11114 - 30 mmol/L1 12:23 PM T [facility] LABAnion Gap16(H)8 - 15 mmol/L1 12:23 PM [facility] LABEstimated Glomerular Filtration Rate 74>=60 mL/min/1.73m 09/12/2025 12:23 PM [facility] LABComment:Estimated Glomerular Filtration Rate (eGFR) is [...] VolumeCollection TimeReceived TimeBloodBLOOD SPECIMEN / UnknownVenipuncture / Uobwvtg3009/12/2025 11:17 AM EDT1 11:17 AM EDT Narrative Authorizing ProviderResult TypeResult StatusAdarsh Vennepureddy MDLABORATORY Final ResultPerforming OrganizationAddressCity/State/ZIP CodePhone Number [facility] LAB [address] [place] [phone] * (ABNORMAL) COMPLETE BLOOD COUNT AND DIFFERENTIAL (09/12/2025 11:17 AM EDT) ComponentValueRef RangeTest MethodAnalysis TimePerformed AtPathologist SignatureWBC3.703.70 - 11.00 k/uL09/12/2025 11:33 AM EDTNORTMYMICHIGAN MEDICAL CENTER CLARE LABRBC5.44(H)3.90 - 5.20 m/uL09/12/2025 11:33 AM [facility] EZXHjlzueumwh67.9(H)11.5 - 15.5 g/dL09/12/2025 11:33 AM [facility] YOPWdlygvqifo39.4(H)36.0 - 46.0 % 09/12/2025 11:33 AM EDTNORTMYMICHIGAN [facility] CL[facility] HOQTBS02.080.0 - 100.0 fL09/12/2025 11:33 AM EDTNORTMYMICH[facility] ZRTTFR19.2 26.0 - 34.0 pg09/12/2025 11:33 AM EDTNORTMYMICHIGAN [facility] LABMCHC 32.930.5 - 36.0 g/dL09/12/2025 11:33 AM [facility] LABRDW-CV13.211.5 - 15.0 %09/12/2025 11:33 AM [facility]TNOC[facility] LABPlatelet Wfgii823927 - 400 k/uL09/12/2025 11:33 AM [facility]TNOC[facility] LABMPV8.8(L)9.0 - 12.7 fL09/12/2025 11:33 AM EDT [facility] LABNeutrophils %55.7%09/12/2025 11:33 AM EDT [facility] LABAbs Neut2.061.45 - 7.50 k/uL09/12/2025 11:33 AM EDTNOC[facility] LABLymphocytes %34.3%09/12/2025 11:33 AM [facility] LABAbs Lymph1.271.00 - 4.00 k/uL 09/12/2025 11:33 AM [facility]DRALE[facility] LABMonocytes %8.1% 09/12/2025 11:33 AM EDNOCITY [facility]PITAL LABAbs Mono0.30<0.87 k/uL09/12/2025 11:33 AM [facility]DRALE[facility] LABEosinophils % 0.8%09/12/2025 11:33 AM EDRALE[facility] LABAbs Eosin0.03 <0.46 k/uL09/12/2025 11:33 AM [facility]DR[facility] LAB Basophils %0.8%09/12/2025 11:33 AM [facility]DRALE[facility] LABAbs Baso0.03<0.11 k/uL09/12/2025 11:33 AM EDNOC[facility] LAB Immature Granulocytes %0.3%09/12/2025 11:33 AM EDTNOC[facility] LABAbs Immature Gran<0.03<0.10 k/uL09/12/2025 11:33 AM EDRALE[facility] LABNRBC0.0/100 WBC09/12/2025 11:33 AM EDTNOC[facility] LABAbsolute nRBC<0.01<0.01 k/uL09/12/2025 11:33 AM EDT [facility] LABDiff DwngLswg40/20/2025 11:33 AM EDT [facility] LABSpecimen (Source)Anatomical Location / LateralityCollection Method / VolumeCollection TimeReceived TimeBloodBLOOD SPECIMEN / UnknownVenipuncture / Aojrqtn5509/12/2025 11:17 AM EDT1 11:17 AM EDT Narrative Authorizing ProviderResult TypeResult StatusAdarsh Vennepureddy MDLABORATORY Final ResultPerforming OrganizationAddressCity/State/ZIP CodePhone Number [facility] [address] [place] [address] from Last 3 Months Insurance * Guarantor: Susanna Minaya AAccount TypeRelation to PatientDate of BirthPhone Billing AddressSelf YisTozm1205/05/1945 [address] [place] [address] Care Teams Team MemberRelationshipSpecialtyStart DateEnd Date HulbertFernando moralesd [address] [place] [address] [address] [place] [address] PCP - GeneralFamily Medicine12/20/13 Raymundo Barnhart MD [address] [place] [address] [place] [address] Hematology/Zvakgfkk21/20/25
--- OUTSIDE RECORDS SUMMARY | 2025-11-23 11:13 | XMS_ITS | Clinical Summary ---
Author Organization [facility] Address [address] [place] [address] Phone Care Team Providers Care Residential Plumber Name Role Phone Unavailable Primary Care Provider Unavailabl e Social History Tobacco UseTypesPacks/DayYears UsedDateSmoking Tobacco: Never Assessed CommentsUnknownSex and Gender InformationValueDate RecordedSex Assigned at Not on fileLegal MjhNxjpmt70/25/2022 4:57 PM ESTGender IdentityNot on fileSexual OrientationNot on file Plan of Treatment Health MaintenanceDue DateLast DoneCommentsLipid Panel1947Yearly Adult Ttpaleax1947Hepatitis C Orlhnlbin70/12/1965DTaP/Tdap/Td Vaccines (1 - Tdap)1969Pneumococcal Vaccine (1 of 1 - PCV)1997Zoster Vaccines (1 of 2)1997Bone Density Scan2012RSV High Risk: (Elderly (60+) or Population) (1 - 1-dose 75+ series)2022OVID-19 Vaccine (1 - 2024-26 season)2025Influenza Vaccine (#1)2025HIB VaccinesAged OutNo longer eligible based on patient's [...]
--- OUTSIDE RECORDS SUMMARY | 2025-11-23 11:13 | XMS_ITS | Clinical Summary ---
Author Organization [facility] Address [address] [place] [address] Care Team Providers Care Fisher Hoop Net Name Role Phone Manjinder Mak MD Primary Care Provider [phone] Allergies Active AllergyReactionsCriticalityNoted TxvsRfplfrzuLnpteqecwg45/29/2023 Other Reaction(s): Neuropathy Dust Mite Vgyrksu6410/22/2023 Other Reaction(s): Itchy, watery, and red eye JojqhdvqnoFsddyh18/29/2023 Other Reaction(s): Sick Pollen Pynajuu6210/22/2023 Other Reaction(s): Itchy eyes YpswnfdynaPedqqnaWnsu86/29/2023 Medications MedicationSigDispense QuantityRefillsLast FilledStart DateEnd DateStatus Acetaminophen 500 MG capsule Take 1 tablet by mouth if needed.Active Active Problems ProblemNoted DateDiagnosed DateDry eyes10/29/2023ystoid macular edema of left eye10/29/2023Epiretinal membrane (ERM) of left eye10/29/2023Left posterior capsular mhrkygekpynul68/06/2023 Resolved Problems ProblemNoted DateDiagnosed DateResolved DateVentral hernia, gejppxdvjn57/13/2023 10/06/2023hronic xprezgpl72ngercute adjustment disorder with depressed moodWaldenstrom's macroglobulinemia in ilfpxosgj64 Social History Tobacco UseTypesPacks/DayYears UsedDateSmoking Tobacco: VcufnaNzbdextlbw386 11/24/1965 - 11/24/1999Smokeless Tobacco: Never Tobacco Cessation:Counseling Given: Yes Comments:QUIT COLD TURKEY Alcohol UseStandard Drinks/WeekCommentsNot Currently0 (1 standard drink = 0.6 oz pure alcohol)1 GLASS NEW YEAR'S EVECommentsUnknownSex and Gender InformationValueDate RecordedSex Assigned at BirthNot on fileLegal SexFemale 02/05/2023 9:44 PM EDTGender IdentityNot on fileSexual OrientationNot on file Last Filed Vital Signs Vital SignReadingTime TakenCommentsBlood Pgitiakl759/7508 9:51 AM EDT Aeoqz4238 9:51 AM EDTTemperature--Respiratory Rate--Oxygen Saturation-- Inhaled Oxygen Concentration--Zmquhh15.1 kg (170 lb)06/24/2025 9:51 AM EDTHeight 160 cm (5' 3 )06/24/2025 9:51 AM EDTBody Mass Index30.1108 9:51 AM EDT Plan of Treatment DateTypeDepartmentCare Team (Latest Contact Info)Uhlgmtoyecs82/21/2026 1:45 PM ESTOffice Visit [facility] [address] [place] [address] Camden Parikh DO [address] [place] [address] Health MaintenanceDue DateLast DoneCommentsInfluenza Vaccine (#1)07/25/2025 09/23/2024, 08/25/2023, 09/04/2022, Additional history existsColonoscopy Yaiehlpuocvj36/01/2010Pneumococcal Vaccine: 65+ QjyaaFslvmbimj95/02/2018, 08/25/2015, 12/11/2013Colorectal Cancer ScreeningDiscontinuedFIT-DNADiscontinued 2CT ColonographyDiscontinuedFITDiscontinuedFOBTDiscontinued SigmoidoscopyDiscontinued Insurance Care Teams Team MemberRelationshipSpecialtyStart DateEnd Manjinder Mak MD [address] [address] PCP - Generalmily Stgdobhv99/13/23
[2025-11-23] MEDS: CEFAZOLIN SODIUM 2 GM/50 ML D5W PREMIX IV (12:23)
[2025-11-23] MEDS: IOHEXOL 240 MG/ML - 10 ML VIAL INJ (12:50)
--- NOTE | 2025-11-23 13:16 | P.URON_ITS ---
Urology Surgery Operative Note Operative Note Procedure Date: 11/23/25 Time Out Performed: yes Pre-op Diagnosis: Left ureteral stone Post-op Diagnosis: same as pre-op Procedures performed: Cystoscopy, left retrograde pyelogram, ureteroscopy with stone basket extraction, stent removal Anesthesia: General-LMA (Dr. Gaspar) Primary Surgeon: Lyn Landeros Complications: none Estimated blood loss (mL): 0 Findings: 2+ trabeculated bladder. Mildly encrusted stent. L RPG- mild hydronephrosis, no ureteral filling defects, reduction in contrast after period of waiting, efflux from UO at end of case Smooth brown 2 mm stone about 2-3 cm from UVJ underwent uncomplicated stone basket extraction. Mild L UO edema. Specimens: left ureteral stone Drains: none Incision: none Indications for Procedures: 80 year old female recently diagnosed with 2 mm left UVJ stone and uncontrolled pain s/p left stent placement 10/17/25 due to inability to reach stone, presents for definitive stone treatment. After discussion of risks/benefits of management options, the patient elected to proceed with cystoscopy, left retrograde pyelogram, ureteroscopy with laser lithotripsy/stone extraction, possible ureteral stent removal vs exchange under general anesthesia. Risks were discussed including but not limited to bleeding, pain, infection, d amage to surrounding structures, inability to treat the stone/place a stent, and need for additional procedures. The patient understands the stent is not permanent and needs to be removed or exchanged within 3 months to prevent encrustation, infection, invasive procedures and/or permanent renal damage. Detailed description of Procedure: After informed consent was obtained, the patient was brought to the operating room and transferred onto the operating table in supine position. Sequential compression devices were placed on bilateral lower extremities. The patient received the appropriate dose of preoperative IV antibiotics and general anesthesia LMA was induced. They were positioned in modified dorsolithotomy with the appropriate pressure points padded, prepped, and draped in the usual sterile fashion for this procedure. An operative safety timeout was performed confirming the patient's identity, laterality and procedure, and all present agreed to proceed. I began by inserting a 22 Faroese rigid cystoscope with 30 degree lens into the patient's urethra and bladder without difficulty. There were no bladder tumors, lesions, stones. Bilateral ureteral orifices were orthotopic and patent. I turned my attention to the left ureteral orifice and a hybrid wire was inserted alongside indwelling stent up to the renal pelvis confirmed on fluoroscopy. The indwelling left ureteral stent was removed in its entirety via flexible graspers retrograde through scope, disposed of. Next a semirigid ureteroscope was inserted along the wire to get access to the distal ureteral stone. A 1.8 tipless nitinol basket was used to remove the stone without difficulty. After the stone was removed, a full ureteroscopy was performed confirming no res idual stones. Minimal ureteral irritation from prior stent. Contrast was injected for retrograde pyelogram confirming no extravasation of contrast, filling defects or significant hydronephrosis. The bladder was drained and monitored to see good, constant efflux from left UO and reduction in collecting system contrast. Therefore, new stent was not placed. The stone was sent for pathology and the cystoscope was removed. The patient tolerated the procedure well without complication. The patient was awakened from anesthesia and sent to PACU in stable condition. Plan: Discharge home. Follow up in 6-8 weeks with renal US and to review stone analysis. Other Provider present: No Post Operative care instructions: See discharge instructions Attending Doc Confirm Attending Attestation: Yes
--- NOTE | 2025-11-23 14:47 | PC.NURSE ---
1325: pt ambulates to bathroom,voids without difficulty. urine clear,yellow.
== END 2025-11-23 14:35 | disposition home or self-care (01) ==
LOC: SURGOUT 11:10
PROVIDERS: PCP Family Medicine; Visit Provider Urology
PROC: (CPT 52352; principal; 2025-11-23 12:00)
DX: N13.2 Hydronephrosis with renal and ureteral calculous obstruction (principal); N95.2 Postmenopausal atrophic vaginitis; Z90.49 Acquired absence of other specified parts of digestive tract; Z98.51 Tubal ligation status; Z87.891 Personal history of nicotine dependence; M19.90 Unspecified osteoarthritis, unspecified site; C88.00 Waldenstrom macroglobulinemia not having achieved remission
CPT/HCPCS: 52352; 74420; 82365; 99999; J0690; J1100; J2003; J2405; J2704; J3010; Q9966